=== PATIENT | female | born 1935 | race Caucasian/White ===

== ENCOUNTER 2025-04-25 14:40 | Inpatient (IN) ==
--- NOTE | 2025-04-25 17:34 | History & Physical Report ---
Date of Service April 25, 2025 Assessment & Plan (1) Hematuria: (2) UTI (urinary tract infection): (3) Dementia: (4) History of recent stroke: (5) GERD (gastroesophageal reflux disease): (6) Recurrent UTI: Plan #Hematuria/UTI/Likely RY - pt w/ UTI and persistent hematuria despite being in [facility] for ~ 1 week - continue meropenem, 500 mg, IV, q8h - ordered continuous bladder irrigation (CBI at OSH has not controlled bleeding) - Urology consult placed - CBC, BMP ordered #Recent stroke w/ MRI from OSH suggestive of multiple embolic strokes - discontinued Eliquis; start Heparin (standard) drip - OSH MRI: 4 mm area of restricted diffusion of l. frontal lobe - [facility] recent admission Hx at nurses station - AM Anti-Factor Xa ordered #Abdominal pain - primarily epigastric, pt w/ Hx of GERD - increase pantoprazole, 40 mg, PO, daily (home med is omeprazole, 20 mg, PO, daily) - CMP ordered for AM labs Chronic conditions #Dementia/depression - continue olanzapine, 5 mg, PO, BID - continue Bupropion, 150 mg, PO, XR, AM #GERD - pantoprazole, PO, daily #Hypothyroidism - continue levothyroxine, 25 mcg, PO, daily, BB Code status: DNR/DNI (confirmed w/ daughter/POA) Disposition: Med-Surg VTE Prophylaxis: Heparin drip (existing clots) FENGI: regular diet Admission and Anticipated Discharge Date Admission Date: April 25, 2025 History of Present Illness Chief Complaint: Hematuria, UTI Primary Care Provider: [facility] Patient is a 89 yo F w/ a PMHx of dementia, GERD, recent evidence of CVA on MRI, delirium, recurrent UTI's, presenting today as a transfer from [facility] due to persistent hematuria after being in the hospital for ~ 1 week (per pt) and being treated for a UTI along. Patient is AAO x 1 only (knows her name, own , nothing else). Patient unable to provide a reliable Hx of her symptoms and is suggestible to having pain in whatever body part is asked about. Past Med/Surg History Problem List (Updated 04/25/25 @ 19:42 by Haris Matthews MD) Recurrent UTI GERD (gastroesophageal reflux disease) History of recent stroke Dementia UTI (urinary tract infection) Hematuria Social History Smoking Status: Never smoker Second Hand Exposure: No; Do You Dip or Chew Tobacco: No; Tobacco Cessation Education Requested by Patient: No Hx Alcohol Use: No Hx Substance Use: No Preferred Language: Yakut Communication Ability: Effective Drug Safety Specialist Required: No Beliefs That Will Affect Care: None Current Living Situation: Personal Care Facility Other Information That Helps Us Care for You: No Feels Safe at Home: Yes Safety Concerns: Feels Safe At This Time Assistive Devices: Wheelchair Review of Systems Review of Systems: Unobtainable due to cognitive status Genitourinary: + hematuria Physical Exam Constitutional: WD/WN, vitals as above Respiratory: normal respiratory effort, lungs clear to auscultation Cardiovascular: Rate/Rhythm: regular rate and regular rhythm Heart Sounds: + murmur Vessels: radial pulses present Gastrointestinal (Abdomen): Inspection/Auscultation: abdomen normal to inspe ction and normal bowel sounds Percussion/Palpation: + abdomen tender (RUQ and epigastric tenderness, 5/10) uncertain severity, uncertain if pt understood question Psychiatric: Orientation: alert and oriented to person; + not oriented to place and + not oriented to time Genitourinary: bladder normal to inspection Supervising Physician Co-Signing Physician Notes I personally examined the patient and verified all lea points of history and exam, discussed case, and agree with decision making with Dr Matthews no complaints no pain no notable problems but also quite confused and HPI/ROS (other than extremely proximal value) is of questionable veracity vitals noted nad heent nc at mmm breathing unlabored no accessory muscles good effort skin no rashes no pallor or icterus neuro no focal deficits urine red UTI, hematuria- apparently on CBI for days wtihout clearing. on meropenem for ESBL. sent for urology eval. 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 get records/review/secondary risk reduction as appropriate, but anticoagulation for now dementia (with what sounds to be fairly severe baseline functional impairment) - in d/w transferring hospitalist, pt was at [facility] ([place]) but family felt she requires a higher level of care at this point (SNF) and want to pursue bed at [facility] otherwise as above
[2025-04-25] MEDS ORDERED: ACETAMINOPHEN 500 MG TAB PO PRN (17:44)
[2025-04-25] MEDS ORDERED: ONDANSETRON INJ 2 MG/ML 2 ML VIAL IV PRN (17:44)
--- NOTE | 2025-04-25 18:18 | Billing Data ---
Date of Service April 25, 2025 Coding Level of Care Code 43753 INT INP/OBS CARE
[2025-04-25 19:45] LABS: Hematocrit (blood only) 32.6 % (37.0-47.0); Hemoglobin 10.3 g/dl (12.0-16.0); Mean Corpuscular Hemoglobin 28.1 pg (25.0-34.0); Mean Corpuscular Volume 89.1 fL (80.0-100.0); Platelet Count 300 K/uL (130-400); RDW Standard Deviation 46.2 fL (36.4-46.3); Red Blood Count 3.66 M/uL (4.20-5.40); White Blood Count 10.82 K/ul (4.8-10.8)
[2025-04-25] MEDS: Patient's HEIGHT &/or WEIGHT Needed SCH (19:57)
[2025-04-25 20:04] LABS: Anion Gap 7.0 (3-11); Blood Urea Nitrogen 18.0 mg/dl (6-23); Calcium 8.8 mg/dl (8.6-10.3); Carbon Dioxide 25.0 mmol/L (21-32); Chloride 105.0 mmol/L (98-107); Creatinine Clr Calc Pharmacy 48.0 ml/min; Glucose 103.0 mg/dl (70-99(Fasting)); Potassium 3.2 mmol/L (3.5-5.1); Sodium 137.0 mmol/L (136-145)
[2025-04-25] MEDS: MEROPENEM 500 MG in SYRINGE 0 ML IV SCH (21:44)
[2025-04-25] MEDS: Heparin IV Adult Wt-Based Standard *NO* INITIAL Bolus Protocol IV STA (22:06)
[2025-04-25] MEDS: HEPARIN 25000 UNIT/500 ML D5W 25,000 UNITS/500 ML BAG IV SCH (22:08)
[2025-04-25 22:21] LABS: INR 1.1 (0.9-1.1); Partial Thromboplastin Time 29 Seconds (21-31); Prothrombin Time 11.6 Seconds (9.0-12.0)
[2025-04-26] MEDS: LACTATED RINGER'S 1,000 ML IV SCH (00:20)
[2025-04-26 00:53] LABS: Appearance Urine Clear (Clear); Bacteria Urine Automated None Seen (None Seen); Cast Urine Automated >20 /lpf (0-2); Epithelial Cell Urine Auto 0-2 /hpf (0-2); Glucose Urine UA Negative (Negative); RBC Urine Automated >20 /hpf (0-2); WBC Urine Automated >50 /hpf (0-5)
[2025-04-26] MEDS: LEVOTHYROXINE SODIUM 25 MCG TABLET PO SCH (06:11)
[2025-04-26 06:36] LABS: Hematocrit (blood only) 29.6 % (37.0-47.0); Hemoglobin 9.9 g/dl (12.0-16.0); Mean Corpuscular Hemoglobin 29.6 pg (25.0-34.0); Mean Corpuscular Volume 88.6 fL (80.0-100.0); Platelet Count 285 K/uL (130-400); RDW Standard Deviation 45.5 fL (36.4-46.3); Red Blood Count 3.34 M/uL (4.20-5.40); White Blood Count 9.62 K/ul (4.8-10.8)
--- NOTE | 2025-04-26 06:53 | Hospitalist Progress Note ---
Date of Service April 26, 2025 Assessment & Plan (1) Hematuria: (2) UTI (urinary tract infection): (3) Dementia: (4) History of recent stroke: (5) GERD (gastroesophageal reflux disease): (6) Recurrent UTI: Plan #Hematuria/UTI/Likely RY - pt w/ UTI and persistent hematuria despite being in [facility] for ~ 1 week - continue meropenem, 500 mg, IV, q8h - ordered continuous bladder irrigation (CBI at OSH had not controlled bleeding) and this morning the urine was completely yellow - Urology consult placed, do not plan on any acute intervention as gross hematuria has resolved - Pt can F/U w/ Urology as outpt - CBC, BMP ordered #Recent stroke w/ MRI from OSH suggestive of multiple embolic strokes - discontinued Eliquis; started Heparin (standard) drip - OSH MRI: 4 mm area of restricted diffusion of l. frontal lobe, m - CTA: showed PE's - [facility] recent admission Hx at nurses station - AM Anti-Factor Xa ordered, 0.91 --> 0.58 #Hypokalemia/Malnutrition/Poor oral intake - 40 mg KCl, oral ordered, ONCE; 20 mg KCl, PO, AM daily - TP, 5.3; Alb, 2.8 --> Patient may need Boost supplementation #Abdominal pain - primarily epigastric, pt w/ Hx of GERD - increase pantoprazole, 40 mg, PO, daily (home med is omeprazole, 20 mg, PO, daily) - CMP ordered for AM labs, results grossly WNL besides above Chronic conditions #Dementia/depression - continue olanzapine, 5 mg, PO, BID --> changed to 5 mg, PO, qHS d/t sedation - continue Bupropion, 150 mg, PO, XR, AM #GERD - pantoprazole, PO, daily #Hypothyroidism - continue levothyroxine, 25 mcg, PO, daily, BB Code status: DNR/DNI (confirmed w/ daughter/POA) Disposition: Med-Surg VTE Prophylaxis: Heparin drip (existing clots) FENGI: regular diet Admission and Anticipated Discharge Date Admission Date: April 25, 2025 Supervising Physician Co-Signing Physician Notes I personally examined the patient and verified all lea points of history and exam, discussed case, and agree with decision making with Dr Matthews No new problems. Urine now clear. Vitals noted. Resting comfortably no distress. Breathing unlabored no accessory muscle use good effort. Skin without rashes pallor or icterus. Neuro without focal deficits. UTI, hematuria- apparently on CBI for days wtihout clearing. on meropenem for ESBL. sent for urology eval. undoubtedly anticoagulation (needed for what sounds to be paradoxical emboli) playing a role in unmasking/amplifying bleeding, but does not appear safe to simply stop anticoagulation (except for brief interruption if urology procedure warranted)Urine now clearing. Await u rology evaluation. 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 Appears to have had small embolic appearing strokes on MRI brain, appears to have had small peripheral PEsthis all favors anticoagulation. Heparin for now, once it is clear that the urine is cleared and no interventions are needed, or interventions are completed, then would transition to DOAC dementia (with what sounds to be fairly severe baseline functional impairment) - in d/w transferring hospitalist, pt was at [facility] ([place]) but family felt she requires a higher level of care at this point (SNF) and want to pursue bed at [facility] otherwise as above Subjective Patient more fatigued this morning compared to the day prior, only intermittently cooperative with exam and only with intermittent responses to questions. Patient's breakfast was untouched and patient was sleeping upon entering the room. Review of Systems Review of Systems: All systems reviewed & are unremarkable except as noted in HPI & below Constitutional: + daytime sleepiness Gastrointestinal: + abdominal pain (RUQ and epigastric reg ion) Genitourinary: no hematuria gross hematuria appears to have resolved compared to last night Physical Exam Constitutional: WD/WN, vitals as above + lethargic Respiratory: normal respiratory effort, lungs clear to auscultation Cardiovascular: Rate/Rhythm: regular rate and regular rhythm Heart Sounds: + murmur Vessels: radial pulses present Gastrointestinal (Abdomen): Inspection/Auscultation: abdomen normal to inspection and normal bowel sounds Percussion/Palpation: + abdomen tender (RUQ and epigastric tenderness, 5/10) Psychiatric: Orientation: oriented to person; + not oriented to place and + not oriented to time Genitourinary: bladder normal to inspection Results & Data Results & Data Vital Signs (Past 12 Hours) Vital Signs Temp Pulse Resp BP Pulse Ox O2 Del Method 04/25/25 21:52 36.7 C 81 16 123/84 95 Room Air 04/25/25 21:40 Room Air Resident Activity Tracking Resident Involvement: Resident Care Provided Care Provided: Adult Hospital Medicine
[2025-04-26 07:15] LABS: Alanine Aminotransferase 11.0 U/L (7-52); Albumin Globulin Ratio 1.1 (0.9-2); Albumin Level 2.8 gm/dl (3.4-5.0); Alkaline Phosphatase 61.0 U/L (34-104); Anion Gap 4.0 (3-11); Bilirubin,Total 0.5 mg/dl (0.2-1.0); Blood Urea Nitrogen 14.0 mg/dl (6-23); Calcium 8.4 mg/dl (8.6-10.3); Carbon Dioxide 28.0 mmol/L (21-32); Chloride 107.0 mmol/L (98-107); Creatinine Clr Calc Pharmacy 47.3 ml/min; Globulin 2.5 gm/dl (2.5-4.0); Potassium 3.4 mmol/L (3.5-5.1); Sodium 139.0 mmol/L (136-145); Total Protein 5.3 gm/dl (6.0-8.3)
[2025-04-26 07:58] LABS: ANTI-Xa, UFH(UnfractionatedHep 0.91 IU/ml (0.3-0.7)
--- NOTE | 2025-04-26 09:43 | Urology Consultation ---
Date of Consultation April 26, 2025 Assessment & Plan (1) Hematuria: (2) Recurrent UTI: Plan 89-year-old female transferred from [facility] for persistent hematuria. Urology is consulted for persistent hematuria Patient afebrile and hemodynamically stable Labs reviewedcreatinine 0.71, WBC 9.62, hemoglobin 9.9 Urinalysis showed 3+ protein, trace ketones, 3+ blood, 3+ LE, >50 WBC, >20 RBC, 0-2 epithelial cells and negative for bacteria Urine culture is pending She is currently on meropenem Foster draining clear yellow urine with CBI on slow Will continue to titrate CBI as appropriate Maintain Foster catheter Nursing can manually irrigate catheter if it becomes obstructed Continue antibiotics per culture No acute intervention at this time Will plan for outpatient follow-up with our service for hematuria workup will follow, please contact resources additional questions or concerns History of Present Illness Reason for Consultation: persistent hematuria in context of PEs Attending Physician: Bird Asher DO History of Present Illness This is an 89-year-old female with past medical history of dementia, recent stroke, and recurrent UTIs who was admitted on 04/25/2025 as a transfer from [facility] due to persistent hematuria. Urology is consulted for persistent hematuria in context of PEs. On arrival to [facility], her lab work showed WBC 10.82, hemoglobin 10.3, potassium 3.2, creatinine 0.7. Urinalysis showed 3+ protein, trace ketones, 3+ blood, 3+ LE, >50 WBC, >20 RBC, 0-2 epithelial cells and negative for bacteria. Urine culture is pending. Per admitting records, she was hospitalized for approximately 1 week at [facility] due to persistent hematuria. She was recently diagnosed with a stroke. MRI from outside hospital suggestive of multiple embolic strokes. She has been started on a heparin drip. She is on meropenem for UTI and patient was started on continuous bladder irrigation. Labs today reviewedcreatinine 0.71, WBC 9.62, hemoglobin 9.9 Patient seen and examined at bedside. She appears comfortable in bed. [place] to her name. She is not able to provide meaningful history. Foster patent and draining clear yellow urine. Allergies Allergy/AdvReac Type Severity Reaction Status Date / Time ertapenem Allergy Severe Unknown Verified 04/25/25 19:56 morphine AdvReac Intermediate Vomiting Verified 04/25/25 20:12 Penicillins AdvReac Unknown Unknown Verified 04/25/25 19:56 Patient History Social History Smoking Status: Never smoker Second Hand Exposure: No; Do You Dip or Chew Tobacco: No; Tobacco Cessation Education Requested by Patient: No Hx Alcohol Use: No Hx Substance Use: No Preferred Language: Amharic Communication Ability: Effective Acid Dumper Required: No Beliefs That Will Affect Care: None Current Living Situation: Personal Care Facility Other Information That Helps Us Care for You: No Feels Safe at Home: Yes Safety Concerns: Feels Safe At This Time Assistive Devices: Wheelchair Review of Systems Review of Systems: Unobtainable due to cognitive status Physical Exam Constitutional: no acute distress Respiratory: normal respiratory effort; no respiratory distress and no labored breathing Gastrointestinal (Abdomen): Inspection/Auscultation: abdomen normal to inspection Musculoskeletal: Head/Neck/Chest: normocephalic Neurologic: moves all extremities Psychiatric: Orientation: cooperative Genitourinary: Foster catheter draining clear yellow urine with CBI on slow Results & Data Vital Signs (Past 12 Hours) Vital Signs Temp Pulse Resp BP Pulse Ox O2 Del Method 04/26/25 07:03 36.8 C 70 16 145/85 H 96 Room Air 04/25/25 21:52 36.7 C 81 16 123/84 95 Room Air PG Care Time/CCT Total # of Minutes Spent Total Time Spent with Patient: Total time spent is greater than 50% in coordination of care (as documented) at patient's floor/unit and/or counseling patient: Coding Level of Care Code 36886 INT INP/OBS CARE 2/55MIN Diagnoses Hematuria R31.9 Recurrent UTI N39.0
[2025-04-26] MEDS: POTASSIUM CHLORIDE CRTAB 20 MEQ TABCR PO ONE (10:05)
[2025-04-26 16:06] LABS: ANTI-Xa, UFH(UnfractionatedHep 0.58 IU/ml (0.3-0.7)
--- NOTE | 2025-04-26 16:11 | Billing Data ---
Date of Service April 26, 2025 Coding Level of Care Code 43592 SUB INP/OBS CARE
[2025-04-27 06:35] LABS: Hematocrit (blood only) 29.1 % (37.0-47.0); Hemoglobin 9.3 g/dl (12.0-16.0); Immature Granulocytes # (auto) 0.04 K/uL (0.01-0.20); Immature Granulocytes % (auto) 0.5 %; Mean Corpuscular Hemoglobin 28.1 pg (25.0-34.0); Mean Corpuscular Volume 87.9 fL (80.0-100.0); Platelet Count 276 K/uL (130-400); RDW Standard Deviation 46.4 fL (36.4-46.3); Red Blood Count 3.31 M/uL (4.20-5.40); White Blood Count 8.34 K/ul (4.8-10.8)
[2025-04-27 07:10] LABS: ANTI-Xa, UFH(UnfractionatedHep 0.40 IU/ml (0.3-0.7)
--- NOTE | 2025-04-27 08:56 | Hospitalist Progress Note ---
Date of Service April 27, 2025 Assessment & Plan (1) Hematuria: (2) UTI (urinary tract infection): (3) Dementia: (4) History of recent stroke: (5) GERD (gastroesophageal reflux disease): (6) Recurrent UTI: Plan #Hematuria/UTI/Likely RY - pt w/ UTI and persistent hematuria despite being in [facility] for ~ 1 week - continue meropenem, 500 mg, IV, q8h - ordered continuous bladder irrigation (CBI at OSH had not controlled bleeding) and this morning the urine was completely yellow - Urology consult placed, do not plan on any acute intervention as gross hematuria has resolved - Pt can F/U w/ Urology as outpt - CBC, BMP ordered #Recent stroke w/ MRI from OSH suggestive of multiple embolic strokes - discontinued Eliquis; started Heparin (standard) drip - OSH MRI: 4 mm area of restricted diffusion of l. frontal lobe, m - CTA (OSH): showed PE's - [facility] recent admission Hx at nurses station - AM Anti-Factor Xa ordered, 0.91 --> 0.58 #Hypokalemia/Malnutrition/Poor oral intake - 40 mg KCl, oral ordered, ONCE; 20 mg KCl, PO, AM daily - TP, 5.3; Alb, 2.8 --> Patient may need Boost supplementation #Abdominal pain - primarily epigastric, pt w/ Hx of GERD - increase pantoprazole, 40 mg, PO, daily (home med is omeprazole, 20 mg, PO, daily) - CMP ordered for AM labs, results grossly WNL besides above Chronic conditions #Dementia/depression - continue olanzapine, 5 mg, PO, BID --> changed to 5 mg, PO, qHS d/t sedation - continue Bupropion, 150 mg, PO, XR, AM #GERD - pantoprazole, PO, daily #Hypothyroidism - continue levothyroxine, 25 mcg, PO, daily, BB Code status: DNR/DNI (confirmed w/ daughter/POA) Disposition: Med-Surg VTE Prophylaxis: Heparin drip (existing clots) FENGI: regular diet Admission and Anticipated Discharge Date Admission Date: April 25, 2025 Supervising Physician Co-Signing Physician Notes I personally examined the patient and verified all lea points of history and exam, discussed case, and agree with decision making with Dr Matthews urine more pink, and apparently blood worse when CBI turned down. Vitals noted. Resting comfortably no distress. Breathing unlabored no accessory muscle use good effort. Skin without rashes pallor or icterus. Neuro without focal deficits. UTI, hematuria- apparently on CBI for days wtihout clearing. on meropenem for ESBL. sent for urology eval. 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 Appears to have had small embolic appearing strokes on MRI brain, appears to have had small peripheral PEsthis all favors anticoagulation. Heparin for now, once it is clear that the urine is cleared and no interventions are needed (not yet), or interventions are completed, then would transition to DOAC dementia (with what sounds to be fairly severe baseline functional impairment) - in d/w transferring hospitalist, pt was at [facility] ([place]) but family felt she requires a higher level of care at this point (SNF) and want to pursue bed at [facility]; case management input appreciated otherwise as above Subjective Patient still fatigued this morning again, only intermittently cooperative with exam and only with intermittent responses to questions. Patient sleeping upon entering room this morning and needed repeated effort to rouse her. Review of Systems Constitutional: + daytime sleepiness Gastrointestinal: no abdominal pain (RUQ and epigastric region) Genitourinary: + hematuria gross hematuria has returned compared to day before Physical Exam Constitutional: WD/WN, vitals as above + lethargic Respiratory: normal respiratory effort, lungs clear to auscultation Cardiovascular: Rate/Rhythm: regular rate and regular rhythm Heart Sounds: + murmur Vessels: radial pulses present Gastrointestinal (Abdomen): Inspection/Auscultation: abdomen normal to inspection and normal bowel sounds Psychiatric: Orientation: alert and oriented to person; + not oriented to place and + not oriented to time Genitourinary: bladder normal to inspection Results & Data Results & Data Vital Signs (Past 12 Hours) Vital Signs Temp Pulse Resp BP Pulse Ox O2 Del Method 04/27/25 07:47 36.5 C 71 16 101/68 96 Room Air 04/26/25 22:04 37.1 C 77 16 105/72 93 Room Air
--- NOTE | 2025-04-27 09:00 | Billing Data ---
Date of Service April 27, 2025 Coding Level of Care Code 58719 SUB INP/OBS CARE
[2025-04-27] MEDS: POTASSIUM CHLORIDE CRTAB 20 MEQ TABCR PO SCH (09:17)
--- NOTE | 2025-04-27 10:45 | Urology Progress Note ---
Date of Service April 27, 2025 Assessment & Plan (1) Hematuria: (2) UTI (urinary tract infection): Plan: 89-year-old female transferred from [facility] for persistent hematuria. Follow-up of hematuria Patient afebrile and hemodynamically stable Labs reviewedWBC 8.34, hemoglobin 9.3 Urine culture is pending She is currently on meropenem Foster draining clear yellow urine with CBI clamped Okay to discontinue CBI and plug irrigation port, maintain catheter She remains on heparin Nursing can manually irrigate catheter if it becomes obstructed Continue antibiotics per culture No acute intervention at this time Will plan for outpatient follow-up with our service for hematuria workup will sign off, please contact her service with any additional questions or concerns Admission and Anticipated Discharge Date Admission Date: April 25, 2025 Subjective Patient seen and examined at bedside this morning. She is awake and resting in bed. She reports irritation on her hand after her IV came out. Otherwise denies pain. Foster patent and draining clear yellow urine with CBI clamped. Per nursing, her urine transiently became slightly bloody yesterday evening and CBI was restarted, but was clamped again after becoming clear. Review of Systems Constitutional: as per Subjective / HPI Genitourinary: as per Subjective / HPI Physical Exam Constitutional: no acute distress Respiratory: normal respiratory effort; no respiratory distress and no labored breathing Gastrointestinal (Abdomen): Inspection/Auscultation: abdomen normal to inspection Musculoskeletal: Head/Neck/Chest: normocephalic Neurologic: moves all extremities Psychiatric: Orientation: cooperative Genitourinary: Foster catheter draining clear yellow urine with CBI clamped Results & Data Vital Signs (Past 12 Hours) Vital Signs Temp Pulse Resp BP Pulse Ox O2 Del Method 04/27/25 07:47 36.5 C 71 16 101/68 96 Room Air PG Care Time/CCT Total # of Minutes Spent Total Time Spent with Patient: Total time spent is greater than 50% in coordination of care (as documented) at patient's floor/unit and/or counseling patient: Coding Level of Care Code 58003 SUB INP/OBS CARE 08/14MIN Diagnoses Hematuria R31.9 UTI (urinary tract infection) N39.0
[2025-04-28 04:21] LABS: Anion Gap 3.0 (3-11); Blood Urea Nitrogen 13.0 mg/dl (6-23); Calcium 8.4 mg/dl (8.6-10.3); Carbon Dioxide 28.0 mmol/L (21-32); Chloride 107.0 mmol/L (98-107); Creatinine Clr Calc Pharmacy 50.1 ml/min; Potassium 3.7 mmol/L (3.5-5.1); Sodium 138.0 mmol/L (136-145)
[2025-04-28 04:23] LABS: ANTI-Xa, UFH(UnfractionatedHep 0.53 IU/ml (0.3-0.7)
--- NOTE | 2025-04-28 07:36 | Hospitalist Progress Note ---
Date of Service April 28, 2025 Assessment & Plan (1) Hematuria: (2) UTI (urinary tract infection): (3) Dementia: (4) History of recent stroke: (5) GERD (gastroesophageal reflux disease): (6) Recurrent UTI: Plan #Hematuria/UTI/Likely RY - pt w/ UTI and persistent hematuria despite being in [facility] for ~ 1 week - continue meropenem, 500 mg, IV, q8h - ordered continuous bladder irrigation (CBI at OSH had not controlled bleed ing), next morning urine completely yellow - Urology consult placed, no plan for acute intervention as gross hematuria had temporarily resolved before returning on 04/27 - per Urology recs, bladder irrigation changed to "as needed, manual irrigation" - Pt can F/U w/ Urology as outpt - Ur Cx, no growth after 48 hrs - CBC, BMP ordered #Recent stroke w/ MRI from OSH suggestive of multiple embolic strokes - discontinued Eliquis; started Heparin (standard) drip - OSH MRI: 4 mm area of restricted diffusion of l. frontal lobe, m - CTA (OSH): showed PE's - [facility] recent admission Hx at nurses station - AM Anti-Factor Xa ordered, 0.91 --> 0.53 #Hypokalemia/Malnutrition/Poor oral intake - 40 mg KCl, oral ordered, ONCE; 20 mg KCl, PO, AM daily - K, 3.7 - TP, 5.3; Alb, 2.8 --> Boost supplementation ordered #Abdominal pain #resolved - primarily epigastric, pt w/ Hx of GERD - increase pantoprazole, 40 mg, PO, daily (home med is omeprazole, 20 mg, PO, daily) - CMP ordered for AM labs, results grossly WNL besides above Chronic conditions #Dementia/depression - continue olanzapine, 5 mg, PO, BID --> changed to 5 mg, PO, qHS d/t sedation - continue Bupropion, 150 mg, PO, XR, AM #GERD - pantoprazole, PO, daily #Hypothyroidism - continue levothyroxine, 25 mcg, PO, daily, BB Code status: DNR/DNI (confirmed w/ daughter/POA) Disposition: Med-Surg VTE Prophylaxis: Heparin drip (existing clots) FENGI: regular diet Admission and Anticipated Discharge Date Admission Date: April 25, 2025 Supervising Physician Co-Signing Physician Notes I personally examined the patient and verified all lea points of history and exam, discussed case, and agree with decision making with Dr Matthews urine a little bit more pink with a small amount of blood as sediment in the Foster bag. No meaningful HPI or review of systems. Vitals noted. Resting comfortably no distress. Breathing unlabored no accessory muscle use good effort. Skin without rashes pallor or icterus. Neuro without focal deficits. UTI, hematuria- apparently on CBI for days without clearing. on meropenem for ESBL. sent for urology eval. undoubtedly anticoagulation (needed for what sounds to be paradoxical emboli) playing a role in unmasking/amplifying bleeding, but does not appear safe to simply stop anticoagulation (except for brief interruption if urology procedure warranted)can't seem to successfully turn down CBI - Today CBI is off, urine a little bit more bloody, but not so much as to clearly need interventioncontinue to follow. 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 Appears to have had small embolic appearing strokes on MRI brain, appears to have had small peripheral PEsthis all favors anticoagulation. Continue heparin for now, once it is clear that the urine is cleared and no interventions are needed (not yet), or interventions are completed, then would transition to DOAC dementia (with what sounds to be fairly severe baseline functional impairment) - in d/w transferring hospitalist, pt was at [facility] ([place]) but family felt she requires a higher level of care at this point (SNF) and want to pursue bed at [facility]; case management input appreciated otherwise as above Subjective Patient friendly and alert this morning, but still only AAO x 1. She is cooperative with exam, but commands need to be repeated often for patient to understand and follow; some commands she is unable to follow. Patient sleeping upon entering room this morning and needed repeated effort to rouse her. Review of Systems Constitutional: + daytime sleepiness Gastrointestinal: no abdominal pain (RUQ and epigastric region) Genitourinary: + hematuria gross hematuria has returned compared to day before Physical Exam Constitutional: WD/WN, vitals as above + lethargic Respiratory: normal respiratory effort, lungs clear to auscultation Cardiovascular: Rate/Rhythm: regular rate and regular rhythm Heart Sounds: + murmur Vessels: radial pulses present Gastrointestinal (Abdomen): Inspection/Auscultation: abdomen normal to inspection and normal bowel sounds Percussion/Palpation: + abdomen tender (RUQ and epigastric tenderness, 5/10) Psychiatric: Orientation: alert and oriented to person; + not oriented to place and + not oriented to time Genitourinary: bladder normal to inspection Results & Data Results & Data Vital Signs (Past 12 Hours) Vital Signs Temp Pulse Resp BP BP Pulse Ox O2 Del Method 04/28/25 07:00 36.8 C 69 19 154/87 H 96 Room Air 04/27/25 23:10 36.7 C 80 18 113/74 94 Room Air
--- NOTE | 2025-04-28 15:55 | Billing Data ---
Date of Service April 28, 2025 Coding Level of Care Code 30033 SUB INP/OBS CARE
[2025-04-28] MEDS: MELATONIN 3 MG TAB PO PRN (21:00)
[2025-04-29 04:36] LABS: Hematocrit (blood only) 29.3 % (37.0-47.0); Hemoglobin 9.1 g/dl (12.0-16.0); Immature Granulocytes # (auto) 0.06 K/uL (0.01-0.20); Immature Granulocytes % (auto) 0.7 %; Mean Corpuscular Hemoglobin 27.9 pg (25.0-34.0); Mean Corpuscular Volume 89.9 fL (80.0-100.0); Platelet Count 305 K/uL (130-400); RDW Standard Deviation 47.9 fL (36.4-46.3); Red Blood Count 3.26 M/uL (4.20-5.40); White Blood Count 8.20 K/ul (4.8-10.8)
[2025-04-29 04:53] LABS: Anion Gap 3.0 (3-11); Blood Urea Nitrogen 11.0 mg/dl (6-23); Calcium 8.6 mg/dl (8.6-10.3); Carbon Dioxide 30.0 mmol/L (21-32); Chloride 107.0 mmol/L (98-107); Creatinine Clr Calc Pharmacy 50.1 ml/min; Potassium 3.6 mmol/L (3.5-5.1); Sodium 140.0 mmol/L (136-145)
[2025-04-29 05:01] LABS: ANTI-Xa, UFH(UnfractionatedHep 0.45 IU/ml (0.3-0.7)
--- NOTE | 2025-04-29 07:18 | Hospitalist Progress Note ---
Date of Service April 29, 2025 Assessment & Plan (1) Hematuria: (2) UTI (urinary tract infection): (3) Dementia: (4) History of recent stroke: (5) GERD (gastroesophageal reflux disease): (6) Recurrent UTI: Plan #Hematuria/UTI/Likely RY - pt w/ UTI and persistent hematuria despite being in [facility] for ~ 1 week - Completed meropenem, 500 mg 04/28 - ordered continuous bladder irrigation (CBI at OSH had not controlled bleedin g), next morning urine completely yellow - Urology consult placed, no plan for acute intervention as gross hematuria had temporarily resolved before returning on 04/27 - per Urology recs, bladder irrigation changed to "as needed, manual irrigation" Can order non-con CT ab/pelvis Pt can F/U w/ Urology as outpt - CT ab/pelvis ordered - CBC, BMP ordered #Recent stroke w/ MRI from OSH suggestive of multiple embolic strokes - Continues on Heparin (standard) drip - OSH MRI: 4 mm area of restricted diffusion of l. frontal lobe, m - CTA (OSH): showed PE's - [facility] recent admission Hx at nurses station - AM Anti-Factor Xa ordered, 0.91 --> 0.53 -->0.45 #Hypokalemia/Malnutrition/Poor oral intake - Continue 20 mg KCl, PO, AM daily - K, 3.6 - Boost supplementation ordered #Abdominal pain #resolved - primarily epigastric, pt w/ Hx of GERD - Continue pantoprazole, 40 mg, PO, daily (home med is omeprazole, 20 mg, PO, daily) - CMP ordered for AM labs, results grossly WNL besides above Chronic conditions #Dementia/depression - continue olanzapine, 5 mg, PO, BID --> changed to 5 mg, PO, qHS d/t sedation - continue Bupropion, 150 mg, PO, XR, AM #GERD - pantoprazole, PO, daily #Hypothyroidism - continue levothyroxine, 25 mcg, PO, daily, BB Code status: DNR/DNI (confirmed w/ daughter/POA) Disposition: Med-Surg VTE Prophylaxis: Heparin drip (existing clots) FENGI: regular diet Admission and Anticipated Discharge Date Admission Date: April 25, 2025 Supervising Physician Co-Signing Physician Notes I personally examined the patient and verified all lea points of history and exam, discussed case, and agree with decision making with Dr Mckeon urine bright red. No clots. No meaningful HPI or review of systems. Vitals noted. Resting comfortably no distress. Breathing unlabored no accessory muscle use good effort. Skin without rashes pallor or icterus. Neuro without focal deficits. UTI, hematuria- apparently on CBI for days without clearing. on meropenem for ESBL. sent for urology eval. undoubtedly anticoagulation (needed for what sounds to be paradoxical emboli) playing a role in unmasking/amplifying bleeding, but does not appear safe to simply stop anticoagulation (except for brief interruption if urology procedure warranted) CBI has now been off for about 2 days, urine not clotting, but is definitely more red. Urology did not feel that interventions were needed even today (resident physician reach out to them to discuss what we are seeing) and CT scan was recommended. Done. Currently pending SNF. At this point, given that procedures do not appear to be warranted per urology, we will need to keep Bey in given that I do not believe she could voice if she had clots obstructing bladder drainage, and it would obviously be easier to see with Bey output; and then once the hematuria clears, could DC Bey, and will have to set up close outpatient urology follow- up. 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 Appears to have had small embolic appearing strokes on MRI brain, appears to have had small peripheral PEsthis all favors anticoagulation. Continue heparin for now, once it is clear that the urine is cleared and no interventions are needed (not yet), or interventions are completed, then would transition to DOAC dementia (with what sounds to be fairly severe baseline functional impairment) - in d/w transferring hospitalist, pt was at [facility] ([place]) but family felt she requires a higher level of care at this point (SNF) and want to pursue bed at [facility]; case management input appreciated and set for [facility] tomorrow otherwise as above Subjective No acute events overnight. This morning, pt is sitting in wheelchair eating breakfast. She reports no new complaints. Pt denies chest pain, SOB, abdominal pain, N/V/D, new arthralgias/myalgias Review of Systems Review of Systems: As per HPI Physical Exam Physical Exam: Gen: NAD, pleasant and cooperative HENT: Normocephalic, atraumatic. Trachea midline, no thyromegaly Cardio: RRR, no murmurs or clicks. Resp: CTAB, Equal bilateral chest rise, no increased work of breathing GI: Non distended, soft, non tender, normoactive bowel sounds : Bey in place, fruit punch colored urine noted in bey bag MSK: Moving all 4 extremities independently Skin: Dry, of normal skin tone Neuro: A& O to self, no focal deficits Results & Data Results & Data Vital Signs (Past 12 Hours) Vital Signs Temp Pulse Resp BP Pulse Ox O2 Del Method 04/28/25 23:21 36.7 C 77 17 115/72 93 Room Air Resident Activity Tracking Resident Involvement: Resident Care Provided Care Provided: Adult Hospital Medicine
[2025-04-29 14:26] VITALS: O2SAT 96
--- NOTE | 2025-04-29 15:41 | CT Scan Report ---
ABDOMEN AND PELVIS CT WITHOUT CONTRAST CT DOSE: 1182.19 mGy.cm HISTORY: worsening hematuria TECHNIQUE: Multiaxial CT images of the abdomen and pelvis were performed without contrast. A dose lo wering technique was utilized adhering to the principles of ALARA. COMPARISON STUDY: 04/21/2025 FINDINGS: ABDOMEN: Liver, spleen, and adrenal glands have an unremarkable noncontrast appearance. There is a st able exophytic oval cyst measuring 2 cm greatest dimension anterior aspect of the proximal body of th e pancreas. There is no hydronephrosis on the left. There is stable mild hydronephrosis on the right. No renal or ureteral calculi seen. Pelvis: There is severe distention of the rectum with stool. Otherwise there is moderate retained sto ol. No other bowel inflammation or obstruction seen. Foster catheter is present and the urinary bladde r is decompressed. Stable wall thickening of the urinary bladder. No free fluid or free air. No gross ly enlarged adenopathy. Osseous structures: There is severe diffuse lumbar degenerative disc disease. Right hip prosthesis is present. No acute osseous findings. IMPRESSION: 1. Rectum is severely distended with stool. This is likely causing mass effect on the distal right ur eter, possibly contributing to the mild right hydronephrosis. 2. Stable wall thickening at the urinary bladder could represent cystitis. 3. No other acute findings seen. Otherwise as described. ACT 112: Negative or not required by law. The above report was generated using voice recognition software. It may contain grammatical, syntax o r spelling errors. Electronically signed by: Kody Kidd M.D. 04/29/2025 3:39 PM
--- NOTE | 2025-04-29 16:48 | Billing Data ---
Date of Service April 29, 2025 Coding Level of Care Code 10003 SUB INP/OBS CARE MIN
[2025-04-29 23:04] VITALS: RESP 16
[2025-04-30 06:17] LABS: ANTI-Xa, UFH(UnfractionatedHep 0.42 IU/ml (0.3-0.7)
[2025-04-30 07:34] VITALS: BP 118/77; PULSE 76; TEMP 98.8
--- NOTE | 2025-04-30 07:38 | Discharge Summary ---
Date of Service April 30, 2025 Admission HPI Per Admitting Provider Patient is a 89 yo F w/ a PMHx of dementia, GERD, recent evidence of CVA on MRI, delirium, recurrent UTI's, presenting today as a transfer from [facility] due to persistent hematuria after being in the hospital for ~ 1 week (per pt) and being treated for a UTI along. Patient is AAO x 1 only (knows her name, own , nothing else). Patient unable to provide a reliable Hx of her symptoms and is suggestible to having pain in whatever body part is asked about. Admission Exam Per Admitting Provider Constitutional: WD/WN, vitals as above Respiratory: normal respiratory effort, lungs clear to auscultation Cardiovascular: Rate/Rhythm: regular rate and regular rhythm Heart Sounds: + murmur Vessels: radial pulses present Gastrointestinal (Abdomen): Inspection/Auscultation: abdomen normal to inspection and normal bowel sounds Percussion/Palpation: + abdomen tender (RUQ and epigastric tenderness, 5/10) uncertain severity, uncertain if pt understood question Psychiatric: Orientation: alert and oriented to person; + not oriented to place and + not oriented to time Genitourinary: bladder normal to inspection Principal Diagnosis Hematuria Embolic Stroke with PE( paradoxical stroke) Discharge Exam Gen: NAD, pleasant and cooperative HENT: Normocephalic, atraumatic. Trachea midline, no thyromegaly Cardio: RRR, no murmurs or clicks. Resp: CTAB, Equal bilateral chest rise, no increased work of breathing GI: Non distended, soft, non tender, normoactive bowel sounds : Bey in place, fruit punch colored urine noted in bey bag MSK: Moving all 4 extremities independently Skin: Dry, of normal skin tone Neuro: A& O to self, no focal deficits Constitutional WD/WN, vitals as above + lethargic Respiratory normal respiratory effort, lungs clear to auscultation Cardiovascular Rate/Rhythm: regular rate and regular rhythm Heart Sounds: + murmur Vessels: radial pulses present Gastrointestinal (Abdomen) Inspection/Auscultation: abdomen normal to inspection and normal bowel sounds Percussion/Palpation: + abdomen tender (RUQ and epigastric tenderness, 5/10) Psychiatric Orientation: alert and oriented to person; + not oriented to place and + not oriented to time Genitourinary bladder normal to inspection Discharge Data Allergies Allergy/AdvReac Type Severity Reaction Status Date / Time ertapenem Allergy Severe Unknown Verified 04/25/25 19:56 morphine AdvReac Intermediate Vomiting Verified 04/25/25 20:12 Penicillins AdvReac Unknown Unknown Verified 04/25/25 19:56 Consultations 04/25/25 18:05 Consult Urology Routine Ordered Studies 04/29/25 13:47 CT Abd and Pelvis [CT abd pelvis wo con] Routine Hospital Course (1) Hematuria: (2) UTI (urinary tract infection): (3) Dementia: (4) History of recent stroke: (5) GERD (gastroesophageal reflux disease): (6) Recurrent UTI: Plan #Hematuria/UTI/Likely RY - pt w/ UTI and persistent hematuria despite being in [facility] for ~ 1 week - Resolving, under bey's catheter now - per Urology recs, Bladder irrigation "as needed", manual irrigation Pt can F/U w/ Urology as outpt #Recent stroke w/ MRI from OSH suggestive of multiple embolic strokes - OSH MRI: 4 mm area of restricted diffusion of l. frontal lobe, m - CTA (OSH): showed PE's - Treated with heparin drip at hospital-- changed to Eliquis 5 mg BID on DC. Other Chronic conditions #Dementia/depression - continue olanzapine, 5 mg, PO, BID --> changed to 5 mg, PO, qHS d/t sedation - continue Bupropion, 150 mg, PO, XR, AM #GERD - pantoprazole, PO, daily #Hypothyroidism - continue levothyroxine, 25 mcg, PO, daily, BB Total Time Total Time Spent Total Time Spent (In Minutes): <30 Discharge Plan Discharge Items Patient Disposition: Transfer Custodial Fac Reason For Visit: HEMATURIA,ESBL IN URINE Discharge Diagnosis: Hematuria Activity: Resume your previous activity Non-emergency contact: Primary Care Provider Call non-emergency contact if: your symptoms worsen Follow-up/Referrals: [facility] [Primary Care Provider] - Diet: Regular Addtl Attending Provider Instructions: You were admitted to the hospital for blood in urine and multiple embolic stroke in brain. Hematuria is clearing up compared to how you came in. We will continue catheter on discharge and urology team, who do no recommend any further work up at hospital now, will follow you in their office. Blood thinners have been started for the brain stroke, it looks like blood clots moved from your lungs to the brain-- we recommend to continue blood thinners. Communication has been initiated with the provider at [facility] by bria tidwellist here at [facility], hence they are aware of plan for you to follow. A discharge summary will be sent to your primary care physician to ensure continuity of care. Please bring this discharge summary with you to your next office appointment so that your provider can review it at that time. Medications: Your medication list has been reviewed and reconciled upon discharge to ensure accuracy and continuity of care. An updated list of all your medications is included with your hospital discharge paperwork. Please review this list closely and make note of any changes to your medications. 1. Elliquis 5 mg BID to continue Follow up appointments: - Follow up with Urology - Make a follow up appointment with your PCP within the next week. It is very important that you follow up with them shortly after discharge from the hospital. - Keep all of your follow up appointments as already scheduled. If you cannot make an appointment, notify your provider. CONTACT YOUR PRIMARY CARE PROVIDER if you experience any of the following: - Difficulty following your treatment plan - Difficulty taking any of your medications CALL 911 OR GO TO THE EMERGENCY DEPARTMENT if you experience any of the following: - Worsening bleeding in urine, lots of clots with fever, unresponsiveness - Sudden, severe abdominal pain or nausea/vomiting - Severe chest pain or chest pain that radiates to your jaw or arm - Sudden, severe shortness of breath or difficulty breathing Pending Studies at Discharge: No Stand-Alone Forms: My [facility] Skilled Items Patient informed of condition?: Yes DNR: Yes Discharge Level of Care: Skilled Communicable Disease: No Discharge Prognosis: Stable Lines: None Urinary Catheter: Yes Medications and DC Order Prescriptions: New olanzapine 5 mg Tablet 5 mg PO HS 30 Days Qty: 30 0RF melatonin 3 mg Tablet 3 mg PO HS PRN (Reason: sleep) Qty: 30 0RF acetaminophen [Tylenol Extra Strength] 500 mg Tablet 1,000 mg PO Q8H PRN (Reason: fever or pain) 30 Days Qty: 30 0RF levothyroxine [Synthroid] 25 mcg Tablet 25 mcg PO DAILYBB 30 Days Qty: 30 0RF potassium chloride 20 mEq Tablet,Er Particles/Crystals 20 meq PO QAM 30 Days Qty: 30 0RF pantoprazole 40 mg Tablet,Delayed Release (Dr/Ec) 40 mg PO QAM 30 Days Qty: 30 0RF bisacodyl [Gentle Laxative (bisacodyl)] 5 mg Tablet,Delayed Release (Dr/Ec) 5 mg PO DAILY PRN (Reason: constipation) 30 Days Qty: 30 0RF bupropion HCl 150 mg Tablet Extended Release 24 Hr 150 mg PO QAM 30 Days Qty: 30 0RF apixaban 5 mg tablet 5 mg PO BID 30 Days Qty: 60 0RF bupropion HCl 150 mg tablet extended release 24 hr 150 mg PO DAILY 30 Days Qty: 30 0RF olanzapine 5 mg tablet 5 mg PO HS 30 Days Qty: 30 0RF levothyroxine 25 mcg capsule 25 mcg PO DAILY 30 Days Qty: 30 0RF polyethylene glycol 3350 [Miralax] 17 gram/dose powder 17 g PO BID Qty: 119 0RF Discharge Orders: Discharge Order (Routine); Ordered 04/30/25 Ordered By: Alana Dodd Admission Data Admit Date/Time: 04/25/25 17:01 Attending Provider: Bird Asher Admit Provider: Bird Asher [facility] Other Providers: Haris Bradford; Francine Keating; Jamel Brar; Ludy Smith; Faye Collins; Chavez Cheatham; Luna Macias; Ayaan Florian; Ward Villegas; Devon Banks; Joesph Galvan; Keenan Lopez [facility] Other Interventions: Discharge Summary Assessment (RN) Last Done: 04/30/25 08:24 Supervising Physician Co-Signing Physician Notes I personally examined the patient and verified all lea points of history and exam, discussed case, and agree with decision making with Dr Dodd urine bright red. but again no clots. urology input greatly appreciated. No meaningful HPI or review of systems. Vitals noted. Resting comfortably no distress. Breathing unlabored no accessory muscle use good effort. Skin without rashes pallor or icterus. Neuro without focal deficits. UTI, hematuria- apparently on CBI for days without clearing. on meropenem for ESBL. sent for urology eval. undoubtedly anticoagulation (needed for what sounds to be paradoxical emboli) playing a role in unmasking/amplifying bleeding, but does not appear safe to simply stop anticoagulation (except for brief interruption if urology procedure warranted) Greatly appreciate urology follow-up todaycontinue Bey drainage. Since no clotting, safe for SNF, continue Bey. Outpatient urology follow-up. 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 Appears to have had small embolic appearing strokes on MRI brain, appears to have had small peripheral PEsthis all favors anticoagulation. Hematuria persists, but has not had any clots of meaningful significance since she has been here. Eliquis. dementia (with what sounds to be fairly severe baseline functional impairment) - in d/w transferring hospitalist, pt was at [facility] ([place]) but family felt she requires a higher level of care at this point (SNF) and want to pursue bed at [facility]; case management input appreciated and set for [facility] Today constipationMiraLAX otherwise as above
[2025-04-30] MEDS: POLYETHYLENE (MIRALAX) 17 GM PACK PO PRN (07:43)
[2025-04-30] MEDS: APIXABAN 5 MG TABLET PO SCH (07:47)
--- NOTE | 2025-04-30 08:39 | Urology Progress Note ---
Date of Service April 30, 2025 Assessment & Plan (1) Hematuria: Plan: hematuria appears to be clearing up, no clots on ct and stable for dc from hospital with outpatient follow up from [facility] standpoint. - would continue with anticoagulation despite hematuria in setting suspected stroke - can follow with [facility] as outpatient for discussion hematuria w/u Admission and Anticipated Discharge Date Admission Date: April 25, [address] reviewed no clot burden is however highly constipated with resultant mass effect on bladder, nonetheless catheter draining Physical Exam Physical Exam: Gen: NAD : catheter in place draining light pink urine Results & Data Vital Signs (Past 12 Hours) Vital Signs Temp Pulse Resp BP BP Pulse Ox O2 Del Method 04/30/25 08:01 Room Air 04/30/25 07:33 37.1 C 76 16 118/77 96 Room Air 04/29/25 23:03 36.6 C 81 16 111/64 96 Room Air PG Care Time/CCT Total # of Minutes Spent Total Time Spent with Patient: Total time spent is greater than 50% in coordination of care (as documented) at patient's floor/unit and/or counseling patient: Coding Level of Care Code 76345 SUB INP/OBS CARE 08/14MIN Diagnoses Hematuria R31.9
--- NOTE | 2025-04-30 17:53 | Billing Data ---
Date of Service April 30, 2025 Coding Level of Care Code 31667 IN/OBS DISCH 30 MIN/LESS
== END 2025-04-30 09:33 | DRG 690 ==
LOC: 3E 17:01

== ENCOUNTER 2025-07-07 16:59 | Inpatient (IN) ==
[2025-07-07 18:27] LABS: Hematocrit (blood only) 37.4 % (37.0-47.0); Hemoglobin 12.1 g/dL (12.0-16.0); Immature Granulocytes # (auto) 0.03 K/uL (0.01-0.20); Immature Granulocytes % (auto) 0.3 %; Mean Corpuscular Hemoglobin 29.2 pg (25.0-34.0); Mean Corpuscular Volume 90.3 fL (80.0-100.0); Platelet Count 198 K/uL (130-400); RDW Standard Deviation 46.9 fL (36.4-46.3); Red Blood Count 4.14 M/uL (4.20-5.40); White Blood Count 9.13 K/ul (4.8-10.8)
[2025-07-07 18:43] LABS: Alanine Aminotransferase 8.0 U/L (7-52); Albumin Globulin Ratio 1.2 (0.9-2); Albumin Level 3.2 gm/dl (3.4-5.0); Alkaline Phosphatase 88.0 U/L (34-104); Anion Gap 7.0 (3-11); Bilirubin,Total 0.4 mg/dl (0.2-1.0); Blood Urea Nitrogen 45.0 mg/dl (6-23); Calcium 8.9 mg/dl (8.6-10.3); Carbon Dioxide 22.0 mmol/L (21-32); Chloride 112.0 mmol/L (98-107); Creatinine Clr Calc Pharmacy 12.5 ml/min; Globulin 2.7 gm/dl (2.5-4.0); Glucose 108.0 mg/dl (70-99(Fasting)); Potassium 4.1 mmol/L (3.5-5.1); Sodium 141.0 mmol/L (136-145); Total Protein 5.9 gm/dl (6.0-8.3)
[2025-07-07 19:08] LABS: Appearance Urine Clear (Clear); Bacteria Urine Automated 2+ (None Seen); Cast Urine Automated 0-2 /lpf (0-2); Epithelial Cell Urine Auto 0-2 /hpf (0-2); Glucose Urine UA Negative (Negative); RBC Urine Automated 0-2 /hpf (0-2); WBC Urine Automated 0-5 /hpf (0-5)
--- NOTE | 2025-07-07 20:09 | Emergency Department Note ---
<Statement entered by Lyla Davenport, DO - 07/08/25 00:07> 89-year-old female presents emergency room with complaints of outpatient labs showing worsening of renal function. Patient found to have elevated creatinine in the emergency room. Having some back pain, but otherwise no real complaints. Imaging within normal limits Spoke with patient about results and plans for admission with IV fluid. She is agreeable. [id number] completed. I saw this patient in conjunction with the LEE. Patient was seen and examined by myself. Agree with plan and treatment. Impression & Plan RY (acute kidney injury) ED Provider Note CHIEF COMPLAINT: Worsening kidney function HISTORY OF PRESENTING ILLNESS: Patient is an 89-year-old female presents the emergency department today for complaints of worsening kidney function. Patient is a resident at [facility] and it was noted to have an elevated kidney function a few days ago. They had given her some IV fluids without any improvement and only worsening renal function. Has been eating and drinking normally. Is upset with being at [facility] and needing assistance with care. Patient denies burning, urgency, frequency with urination. Denies flank pain. She denies any fevers or chills, flank pain. Patient denies chest pain, sob, breathing difficulties, abdominal pain, headache, fevers/chills, hematuria, hematochezia, melena. REVIEW OF SYSTEMS: See HPI for pertinent positives and pertinent negatives. ALLERGIES: See below MEDICATIONS: See below PAST MEDICAL HISTORY: See below PHYSICAL EXAM: VITALS: Vitals are noted on the nurse's note and reviewed by myself. GENERAL: Non toxic, in no acute distress, non-diaphoretic. SKIN: Capillary refill <2 sec. EYES: PERRLA. EOMI. Conjunctivae without injection, sclerae without icterus. NOSE: Patent without discharge. MOUTH: Mucous membranes moist. Uvula midline. Airway patent. NECK: Supple without nuchal rigidity. HEART: Regular rate and rhythm without murmurs gallops or rubs. LUNGS: Clear to auscultation bilaterally without wheezes, rales or rhonchi. No retractions or accessory muscle use. ABDOMEN: Positive bowel sounds x 4. Normal tympanic percussion. Soft, nontender to palpation. MUSCULOSKELETAL: Patient does need assistance with standing and moving around. NEURO: Patient was alert and oriented. No focal neurological deficits. DIFFERENTIAL DIAGNOSIS: Calculi, obstructing calculi, acute renal failure, chronic renal failure, ACS, among others. ED COURSE AND MEDICAL DECISION MAKING: HISTORY FROM INDEPENDENT HISTORIAN: History was provided by the patient and her daughter who is at bedside and secondary historian. MONITOR: Continuous environmental monitoring specialist: Order was placed for continuous environmental monitoring specialist. Patient was placed on the environmental monitoring specialist and continuous pulse ox. Patient was noted to be in normal sinus rhythm at an initial rate of 72 bpm per my interpretation. INTERPRETATION OF LABS: I interpreted the labs with full lab results as below in the lab section of this note. Laboratory results pertinent to the emergent complaint are discussed in the MDM section below. The patient was advised to follow up with their PCP and/or specialist(s) for further outpatient monitoring and management of any abnormal results. INTERPRETATION OF IMAGING: Imaging studies were interpreted by myself and read by radiology as per the imaging section of this note. The patient was advised to follow up with their PCP and/or specialist(s) for further outpatient management of any non-emergent abnormal findings. CHRONIC MEDICAL/SOCIAL CONDITIONS AFFECTING CARE: No social concerns were identified as barriers to patients care. EXTERNAL RECORDS REVIEWED: Patient's records from [facility] and her medication list. ESCALATION OF CARE CONSIDERED: I considered admission on this patient due to worsening renal function. CONSULTATIONS: I had a meaningful discussion about this patient with Dr. Davenport who agrees with my assessment and the treatment plan. SUMMARY: I examined the patient for complaints of worsening renal function. A physical exam and history were performed. Nursing notes, EMR, and medication list were personally reviewed. History and exam and reviewed the patient's lab work from [facility]. Concerns for worsening renal function. CBC showed no leukocytosis, anemia, thrombocytopenia. CMP without emergent findings or electrolyte abnormalities. Creatinine was noted be 2.57 with a BUN of 45. Urinalysis was positive for leukocytes and bacteria. Will hold on antibiotics until culture. Urine culture was ordered. CT abd and pelvis showed moderate distention of the distal colon with liquid stool seen distally. There was soft tissue thickening about the rectum and the anus which is unchanged from prior exam. Circumferential wall thickening of the urinary bladder which is distended. Mild bibasilar atelectasis coronary artery calcifications and elevation of the right Hemidiaphragm. I feel the patient will benefit from admission since renal function is not improving. Patient given 1L NSS. I did consult with Dr. Mallory Interiano for admission and the patient was accepted. DIAGNOSIS: RY TREATMENT PLAN/DISCHARGE INSTRUCTIONS: Admit to hospitalist services. The chart was completed utilizing [employer] Speech voice recognition software.Grammatical errors, random word insertions, pronoun errors, and incomplete sentences are an occasional consequence of this system due to software limitations, ambient noise, and hardware issues.Any formal questions or concerns about the content, text, or information contained within the body of this dictation should be directly addressed to the physician for clarification. Past Med/Surg History Problem List (Updated 07/07/25 @ 22:06 by PAULINA Wells) History of pulmonary embolus (PE) History of embolic stroke RY (acute kidney injury) (Acute) Recurrent UTI GERD (gastroesophageal reflux disease) Dementia Hematuria Medical History (Updated 07/07/25 @ 22:06 by PAULINA Wells) History of recent stroke Social History Smoking Status: Never smoker Second Hand Exposure: No; Do You Dip or Chew Tobacco: No; Hx Alcohol Use: No Hx Substance Use: No Preferred Language: Azeri Communication Ability: Effective District Traffic Chief Required: No Beliefs That Will Affect Care: None Current Living Situation: Personal Care Facility Feels Safe at Home: Yes Assistive Devices: Glasses and Wheelchair Allergies Allergies Allergy/AdvReac Type Severity Reaction Status Date / Time ertapenem Allergy Severe SEE COMMENT Verified 07/07/25 19:44 Penicillins Allergy Unknown HAPPENED A Verified 07/07/25 19:44 LONG TIME AGO morphine AdvReac Intermediate Vomiting Verified 07/07/25 19:44 Home Meds Home Medications Medication Instructions Recorded Confirmed acetaminophen 325 mg tablet 650 mg PO Q4H PRN PAIN/FEVER =>100F 07/07/25 07/07/25 (Tylenol) apixaban 5 mg tablet (Eliquis) 5 mg PO BID 07/07/25 07/07/25 bupropion HCl 150 mg 24 hr tablet, 150 mg PO QAM 07/07/25 07/07/25 extended release (Wellbutrin XL) cranberry extract 250 mg capsule 250 mg PO DAILY 07/07/25 07/07/25 estradiol 0.01% (0.1 mg/gram) 0.5 g vaginal HS 07/07/25 07/07/25 vaginal cream (Estrace) levothyroxine 25 mcg tablet 25 mcg PO DAILYBB 07/07/25 07/07/25 olanzapine 5 mg tablet 5 mg PO HS 07/07/25 07/07/25 ondansetron HCl 4 mg tablet 4 mg PO Q6H PRN NAUSEA/VOMITING 07/07/25 07/07/25 pantoprazole 40 mg tablet,delayed 40 mg PO DAILYBB 07/07/25 07/07/25 release (Protonix) polyethylene glycol 3350 17 17 g PO DAILY 07/07/25 07/07/25 gram/dose oral powder (Miralax) potassium chloride 20 mEq 20 meq PO DAILY 07/07/25 07/07/25 tablet,extended release Results & Data (ED) Vital Signs Vital Signs - 24 hr 07/07/25 17:08 07/07/25 17:55 07/07/25 18:17 Temperature 36.5 C Temperature Source Temporal Artery Scan Pulse Rate 84 Pulse Rate [Apical] 80 76 Respiratory Rate 18 20 20 Respiratory Effort / Characteristics Non-Labored Non-Labored Respiratory Depth Normal Normal Respiratory Pattern Blood Pressure 108/69 Blood Pressure [Right Arm] 115/81 104/75 Blood Pressure Mean 82 Blood Pressure Mean [Right Arm] 92 84 Pulse Oximetry 96 95 95 Oxygen Delivery Method Room Air Room Air Sepsis Recent Fever Within 48 Hours No Sepsis New/Unexplained Change in Mental Status No Sepsis Action Taken by Nursing No Action Required 07/07/25 18:50 07/07/25 20:32 07/07/25 21:46 Temperature Temperature Source Pulse Rate Pulse Rate [Apical] 72 79 78 Respiratory Rate 20 16 18 Respiratory Effort / Characteristics Non-Labored Non-Labored Spontaneous Respiratory Depth Normal Normal Respiratory Pattern Regular Blood Pressure Blood Pressure [Right Arm] 130/81 159/96 H Blood Pressure Mean Blood Pressure Mean [Right Arm] 97 117 Pulse Oximetry 95 95 94 Oxygen Delivery Method Room Air Room Air Room Air Sepsis Recent Fever Within 48 Hours Sepsis New/Unexplained Change in Mental Status Sepsis Action Taken by Nursing Laboratory Data 07/07/25 18:14 07/07/25 18:14 Lab Results 07/07/25 07/07/25 Range/Units 18:14 18:47 WBC 9.13 (4.8-10.8) K/ul RBC 4.14 L (4.20-5.40) M/uL Hgb 12.1 (12.0-16.0) g/dL Hct 37.4 (37.0-47.0) % MCV 90.3 (80.0-100.0) fL MCH 29.2 (25.0-34.0) pg MCHC 32.4 (32.0-36.0) g/dL RDW Std Deviation 46.9 H (36.4-46.3) fL RDW Coeff of Alvaro 14.3 (11.5-14.5) % Plt Count 198 (130-400) K/uL MPV 11.7 (9.4-12.4) fL Immature Gran % (Auto) 0.3 % Neut % (Auto) 66.7 % Lymph % (Auto) 18.6 % [place] % (Auto) 6.5 % Eos % (Auto) 7.8 % Baso % (Auto) 0.1 % Neut # (Auto) 6.09 (1.40-6.50) K/uL Lymph # (Auto) 1.70 (1.20-3.40) K/uL [place] # (Auto) 0.59 (0.11-0.59) K/uL Eos # (Auto) 0.71 H (0.00-0.50) K/uL Baso # (Auto) 0.01 (0.00-0.20) K/uL Immature Gran # (Auto) 0.03 (0.01-0.20) K/uL Sodium 141 (136-145) mmol/L Potassium 4.1 (3.5-5.1) mmol/L Chloride 112 H (98-107) mmol/L Carbon Dioxide 22 (21-32) mmol/L Anion Gap 7 (3-11) BUN 45 H (6-23) mg/dl Creatinine 2.57 H (0.6-1.2) mg/dl Est Cr Clr Drug Dosing 12.5 ml/min eGFR 17.46 BUN/Creatinine Ratio 17.5 (10-20) Glucose 108 H (70-99(Fasting)) mg/dl Calcium 8.9 (8.6-10.3) mg/dl Magnesium 1.8 (1.7-2.4) mg/dl Total Bilirubin 0.4 (0.2-1.0) mg/dl AST 12 L (13-39) U/L ALT 8 (7-52) U/L Alkaline Phosphatase 88 (34-104) U/L Total Protein 5.9 L (6.0-8.3) gm/dl Albumin 3.2 L (3.4-5.0) gm/dl Globulin 2.7 (2.5-4.0) gm/dl Albumin/Globulin Ratio 1.2 (0.9-2) Urine Color Yellow Urine Appearance Clear (Clear) Urine pH 5.0 (4.5-7.5) Ur Specific [place] 1.011 (1.000-1.030) Urine Protein Trace H (Negative) Urine Glucose (UA) Negative (Negative) Urine Ketones Negative (Negative) Urine Blood Negative (Negative) Urine Nitrite Negative (Negative) Urine Bilirubin Negative (Negative) Urine Urobilinogen Negative (Negative) Ur Leukocyte Esterase 1+ H (Negative) Urine WBC (Auto) 0-5 (0-5) /hpf Urine RBC (Auto) 0-2 (0-2) /hpf U Hyaline Cast (Auto) 0-2 (0-2) /lpf U Epithel Cells (Auto) 0-2 (0-2) /hpf Urine Bacteria (Auto) 2+ H (None Seen) Urine Comment Administered Medications Sodium Chloride (Nss) 1,000 mls @ 250 mls/hr IV .Q4H ONE Stop: 07/08/25 00:02 Last Admin: 07/07/25 20:23 Dose: 250 mls/hr Documented By: abl Discontinued Medications Ceftriaxone Sodium (Rocephin) 1,000 mg in 50 mls @ 100 mls/hr IV NOW STA Stop: 07/07/25 21:42 Last Admin: 07/07/25 21:24 Dose: 100 mls/hr Documented By: abl Imaging Data Radiologist's Impression: Abdomen/Pelvis CT 07/07/25 17:56 CT of the abdomen pelvis without contrast Technique: Noncontrast axial images of the abdomen and pelvis. Coronal and sagittal reformatted images made available for review Comparison made with prior exam dated 04/29/2025 Findings: Limited noncontrast CT evaluation of solid abdominal organs demonstrates no gross abnormality. No hydroureteronephrosis. Urinary bladder is distended and somewhat thick-walled. No renal, ureteral, or bladder calculi identified on this exam. Evaluation in gastrointestinal tract is limited secondary to lack of IV and oral contrast. Within the limitations exam there is no free air or intestinal obstruction. There is moderate distention of the distal colon with a moderate amount of liquid stool seen distally. There is soft tissue thickening around the rectum and anus which is unchanged from prior exam. Postoperative changes right hip arthroplasty. No acute osseous pathology. Impression: Limited exam Moderate distention of the distal colon with air and is liquid stool seen distally. Soft tissue thickening about the rectum and anus which is unchanged from prior exam Circumferential wall thickening of the urinary bladder which is distended. Findings may represent cystitis in appropriate clinical setting. Mild bibasilar atelectasis. Coronary artery calcifications. Elevation of the right hemidiaphragm. Electronically signed by Bird Barrera 07-07-2025 8:36 PM Discharge Plan Visit Data Chief Complaint: Flank Pain Stated Complaint: KIDNEY CONCERNS ED Provider: Lyla Davenport ED Midlevel Provider: Rosmery Burden Discharge Problem: RY (acute kidney injury) Patient Disposition: Admitted As Inpatient Condition: Good Discharge Instructions Interventions: ED Discharge Assessment Last Done: 07/07/25 21:47 Forms Stand Alone Forms: [facility] My[employer] Prescriptions Prescriptions: No Action acetaminophen [Tylenol] 325 mg Tablet 650 mg PO Q4H PRN (Reason: PAIN/FEVER =>100F) ondansetron HCl [Zofran] 4 mg Tablet 4 mg PO Q6H PRN (Reason: NAUSEA/VOMITING) Rx Instructions: STARTED 07/04/25, ENDS 07/09/25 olanzapine 5 mg Tablet 5 mg PO HS levothyroxine 25 mcg Tablet 25 mcg PO DAILYBB cranberry extract 250 mg Capsule 250 mg PO DAILY Rx Instructions: administer with a meal pantoprazole [Protonix] 40 mg Tablet,Delayed Release (Dr/Ec) 40 mg PO DAILYBB bupropion HCl [Wellbutrin XL] 150 mg Tablet Extended Release 24 Hr 150 mg PO QAM Eliquis 5 mg Tablet 5 mg PO BID potassium chloride 20 mEq Tablet Extended Release 20 meq PO DAILY polyethylene glycol 3350 [Miralax] 17 gram/dose powder 17 g PO DAILY estradiol [Estrace] 0.01 % (0.1 mg/gram) cream 0.5 g vaginal HS Rx Instructions: use nightly Referrals Referrals: eKenan Lopez Estacada [Primary Care Provider] -
[2025-07-07] MEDS: SODIUM CHLORIDE 0.9% 1,000 ML IV ONE (20:23)
--- NOTE | 2025-07-07 20:36 | CT Scan Report ---
CT of the abdomen pelvis without contrast Technique: Noncontrast axial images of the abdomen and pelvis. Coronal and sagittal reformatted images made available for review Comparison made with prior exam dated 04/29/2025 Findings: Limited noncontrast CT evaluation of solid abdominal organs demonstrates no gross abnormality. No hydroureteronephrosis. Urinary bladder is distended and somewhat thick-walled. No renal, ureteral, or bladder calculi identified on this exam. Evaluation in gastrointestinal tract is limited secondary to lack of IV and oral contrast. Within the limitations exam there is no free air or intestinal obstruction. There is moderate distention of the distal colon with a moderate amount of liquid stool seen distally. There is soft tissue thickening around the rectum and anus which is unchanged from prior exam. Postoperative changes right hip arthroplasty. No acute osseous pathology. Impression: Limited exam Moderate distention of the distal colon with air and is liquid stool seen distally. Soft tissue thickening about the rectum and anus which is unchanged from prior exam Circumferential wall thickening of the urinary bladder which is distended. Findings may represent cystitis in appropriate clinical setting. Mild bibasilar atelectasis. Coronary artery calcifications. Elevation of the right hemidiaphragm. Electronically signed by Bird Barrera 07-07-2025 8:36 PM
[2025-07-07 21:10] LABS: Magnesium 1.8 mg/dl (1.7-2.4)
--- NOTE | 2025-07-07 21:16 | History & Physical Report ---
Date of Service July 07, 2025 Assessment & Plan (1) RY (acute kidney injury): (2) Recurrent UTI: (3) History of embolic stroke: (4) History of pulmonary embolus (PE): Plan Patient is an 89-year-old female with a past medical history of embolic CVA 04/21, PE 04/21 on Eliquis, dementia, depression, hypothyroidism, GERD, recurrent UTIs. Patient presented from [facility] with her daughter after being referred to come in due to 2 days of worsening kidney function failing to improve with IVF. Patient was found to have creatinine increased from 1.05 to 2.57 and a UTI on UA. She is being admitted for IVF and IV antibiotics. #RY/UTI - Cr increased from 1.05 to 2.57, BUN 45, electrolytes stable. UA concerning for infection wiht 1+ LE and 2 + bacteria. AP CT showed cystitis. Non septic presentation - no leukocytosis, VSS. - renally dose Eliquis - avoid nephrotoxic agents - NSS @ 250 ml/hr x1L ordered by ED - follow with LR @ 125 ml/hr x2 L - Rocephin 1g IV Q24h ordered; no previous positive cultures on file - follow urine culture - trend CBC, BMP, Mag #multiple embolic strokes/recent PE 04/21/2025 originally at [facility] and transferred to [facility] until 04/30/25. - decreasing Eliquis as above #dementia/depressionstable, at baseline. 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 Patient presented from [facility] with her daughter after being referred to come in due to 2 days of worsening kidney function failing to improve with IVF. Patient was found to have creatinine increased from 1.05-2.57 and a UTI on UA. She is being admitted for IVF and IV antibiotics. Patient seen at bedside with her daughter present. Patient is alert and oriented however does appear mildly confused and not responsive to questioning as she is unhappy that she needs to stay in the hospital and is very hungry. Obtained food for the patient. Discussed that she needed to stay due to her kidney function and that she needs IV fluids, patient is agreeable to stay 1 night but would like to return to [facility] as soon as possible. Discussed that she may need a longer hospitalization based off her recovery. The following history was obtained by the patient's daughter. The patient has not had any symptoms; denies dysuria, increase in urinary frequency, chest pain, shortness of breath, abdominal pain. The patient did have a stomach bug several days ago which resulted in 1 episode of vomiting and 1 episode of diarrhea however since resolved. The patient does have mild urinary incontinence at baseline due to ambulatory dysfunction however does often make it to the bathroom. She stated that the patient had an episode of sepsis from UTI in August which is when her dementia began. She has had frequent UTIs since however since being at [facility] they have been stable for the past few months. Patient is due for evening medications, will order. She wishes to maintain her DNR/DNI status. She stated the patient is at her baseline mentation. Allergies Allergy/AdvReac Type Severity Reaction Status Date / Time ertapenem Allergy Severe SEE COMMENT Verified 07/07/25 19:44 Penicillins Allergy Unknown HAPPENED A Verified 07/07/25 19:44 LONG TIME AGO morphine AdvReac Intermediate Vomiting Verified 07/07/25 19:44 Home Medications Medication Instructions Recorded Confirmed Type acetaminophen 325 mg tablet 650 mg PO Q4H PRN PAIN/FEVER =>100F 07/07/25 07/07/25 History (Tylenol) apixaban 5 mg tablet (Eliquis) 5 mg PO BID 07/07/25 07/07/25 History bupropion HCl 150 mg 24 hr tablet, 150 mg PO QAM 07/07/25 07/07/25 History extended release (Wellbutrin XL) cranberry extract 250 mg capsule 250 mg PO DAILY 07/07/25 07/07/25 History estradiol 0.01% (0.1 mg/gram) 0.5 g vaginal HS 07/07/25 07/07/25 History vaginal cream (Estrace) levothyroxine 25 mcg tablet 25 mcg PO DAILYBB 07/07/25 07/07/25 History olanzapine 5 mg tablet 5 mg PO HS 07/07/25 07/07/25 History ondansetron HCl 4 mg tablet 4 mg PO Q6H PRN NAUSEA/VOMITING 07/07/25 07/07/25 History pantoprazole 40 mg tablet,delayed 40 mg PO DAILYBB 07/07/25 07/07/25 History release (Protonix) polyethylene glycol 3350 17 17 g PO DAILY 07/07/25 07/07/25 History gram/dose oral powder (Miralax) potassium chloride 20 mEq 20 meq PO DAILY 07/07/25 07/07/25 History tablet,extended release Past Med/Surg History Problem List (Updated 07/07/25 @ 22:06 by PAULINA Wells) History of pulmonary embolus (PE) History of embolic stroke RY (acute kidney injury) (Acute) Recurrent UTI GERD (gastroesophageal reflux disease) Dementia Hematuria Medical History (Updated 07/07/25 @ 22:06 by PAULINA Wells) History of recent stroke Social History Smoking Status: Never smoker Second Hand Exposure: No; Do You Dip or Chew Tobacco: No; Hx Alcohol Use: No Hx Substance Use: No Preferred Language: Ugandan Communication Ability: Effective Communication Ability Comment: pt has dementia Architecture Instructor Required: No Beliefs That Will Affect Care: None Current Living Situation: Personal Care Facility Current Living Situation Comment: [facility] Feels Safe at Home: Yes Safety Concerns: Feels Safe At This Time Assistive Devices: Walker Review of Systems Review of Systems: see HPI Physical Exam Physical Exam: The patient is awake, alert and oriented 3 however mildly confused, well developed and well nourished, normocephalic and atraumatic, in no acute distress. Non-toxic appearing. HEENT- EOMI, mucous membranes dry. Hearing grossly intact. Heart-normal S1 and S2. No murmurs, rubs or gallops. Lungs-clear bilaterally, no respiratory distress, no accessory muscle use. Abdomen-normal bowel sounds and soft. No ascites noted. Non-tender. Extremities- no clubbing, cyanosis, or edema. Rheumatologic-normal range of motion. Psychiatric: Affect: + irritable affect Results & Data Results & Data Vital Signs (Past 12 Hours) Vital Signs Temp Pulse Pulse Resp BP BP Pulse Ox 07/07/25 20:32 79 16 95 07/07/25 18:50 72 20 130/81 95 07/07/25 18:17 76 20 104/75 95 07/07/25 17:55 80 20 115/81 95 07/07/25 17:08 36.5 C 84 18 108/69 96 O2 Del Method 07/07/25 20:32 Room Air 07/07/25 18:50 Room Air 07/07/25 18:17 Room Air 07/07/25 17:55 Room Air 07/07/25 17:08 Laboratory Results Reviewed CBC, CMP, UA Ordered magnesium Diagnostic Findings reviewed AP CT Medications Administered EDNSS at 250 mL/hour x 1L ECG Additional Comments: ordered Code Status & VTE Plan Code Status dnr/dni VTE Prophylaxis Plan VTE Prophylaxis will be ordered: Yes Supervising Physician Co-Signing Physician Notes 89yo female with history of prior CVA, prior PE on Eliquis presenting with worsening renal function Patient frail in appearance, dry mucus membranes +S1/S2, regular Lungs CTA, no rales Labs and images reviewed - Cr=2.57 from last value of 1.05 on 05/15/25. Remainder of metabolic profile and electrolytes are acceptable Assessment/Plan Will continue with gentle hydration - repeat chemistry in AM Avoid nephrotoxins - renal dose medications where needed Treatment of UTI with Ceftriaxone - no prior resistant organisms on culture PG Care Time/CCT Total # of Minutes Spent Total Time Spent with Patient: Total time spent is greater than 50% in coordination of care (as documented) at patient's floor/unit and/or counseling patient: Coding Level of Care Code 91596 INT INP/OBS CARE 3/75MIN Diagnoses RY (acute kidney injury) N17.9 Recurrent UTI N39.0 History of embolic stroke Z86.73 History of pulmonary embolus (PE) Z86.711
[2025-07-07] MEDS: cefTRIAXone SODIUM 1,000 MG/50 ML BAG IV STA (21:24)
[2025-07-07] MEDS ORDERED: DOCUSATE SODIUM 100 MG CAP PO PRN (22:16)
[2025-07-07] MEDS ORDERED: ONDANSETRON INJ 2 MG/ML 2 ML VIAL IV PRN (22:16)
[2025-07-07] MEDS ORDERED: POLYETHYLENE (MIRALAX) 17 GM PACK PO PRN (22:16)
[2025-07-07] MEDS: APIXABAN 2.5 MG TAB PO SCH (23:00)
[2025-07-08] MEDS: LACTATED RINGER'S 1,000 ML IV SCH (00:09)
[2025-07-08] MEDS: LEVOTHYROXINE SODIUM 25 MCG TABLET PO SCH (05:51)
[2025-07-08 06:04] LABS: Hematocrit (blood only) 36.9 % (37.0-47.0); Hemoglobin 12.0 g/dL (12.0-16.0); Mean Corpuscular Hemoglobin 29.1 pg (25.0-34.0); Mean Corpuscular Volume 89.3 fL (80.0-100.0); Platelet Count 202 K/uL (130-400); RDW Standard Deviation 46.5 fL (36.4-46.3); Red Blood Count 4.13 M/uL (4.20-5.40); White Blood Count 9.36 K/ul (4.8-10.8)
[2025-07-08 06:26] LABS: Albumin Level 3.2 gm/dl (3.4-5.0); Anion Gap 8.0 (3-11); Bilirubin,Total 0.3 mg/dl (0.2-1.0); Calcium 8.7 mg/dl (8.6-10.3); Carbon Dioxide 21.0 mmol/L (21-32); Chloride 114.0 mmol/L (98-107); Magnesium 1.7 mg/dl (1.7-2.4); Potassium 3.9 mmol/L (3.5-5.1); Sodium 143.0 mmol/L (136-145)
[2025-07-08 06:32] LABS: Alanine Aminotransferase 6.0 U/L (7-52); Albumin Globulin Ratio 1.3 (0.9-2); Alkaline Phosphatase 79.0 U/L (34-104); Blood Urea Nitrogen 43.0 mg/dl (6-23); Creatinine Clr Calc Pharmacy 14.5 ml/min; Globulin 2.4 gm/dl (2.5-4.0); Glucose 89.0 mg/dl (70-99(Fasting)); Total Protein 5.6 gm/dl (6.0-8.3)
[2025-07-08] MEDS: POTASSIUM CHLORIDE CRTAB 20 MEQ TABCR PO SCH (08:45)
--- NOTE | 2025-07-08 12:31 | Hospitalist Progress Note ---
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 Patient presented from [facility] with her daughter after being referred to come in due to 2 days of worsening kidney function failing to improve with IVF. Patient was found to have creatinine increased from 1.05 to 2.57 and a UTI on UA. She is being admitted for IVF and IV antibiotics. #RY/UTI - Cr increased from 1.05 to 2.57, BUN 45, electrolytes stable. UA concerning for infection wiht 1+ LE and 2 + bacteria. AP CT showed cystitis. Non septic presentation - no leukocytosis, VSS. - avoid nephrotoxic agents - NSS @ 250 ml/hr x1L ordered by ED - follow with LR @ 125 ml/hr x2 L - Rocephin 1g IV Q24h ordered; no previous positive cultures on file - Urine Cx without growth (<1000 colonies) -- await final cx but can likely stop abx - trend CBC, BMP, Mag -- renal fxn trended down to 2.28, but still significantly above baseline, continue fluids and trend labs in AM #multiple embolic strokes/recent PE 04/21/2025 originally at [facility] and transferred to [facility] until 04/30/25. -continue Eliquis 5mg po bid-no renal dosing due to being indicated for VTE #dementia/depressionstable, at baseline. Continue olanzapine and bupropion #GERDcontinue pantoprazole #Hypothyroidismcontinue levothyroxine VTE ppx: continue home Eliquis Dispo: med surg, obs, possibly back to [facility] tomorrow if renal fxn improved/closer to baseline Admission and Anticipated Discharge Date Admission Date: July 07, 2025 Supervising Physician Co-Signing Physician Notes PA Supervision Note: I did not personally see or examine the patient today, but I verified all lea points of MELISSA Rendon's assessment and plan with the following exceptions/additions: None Subjective Lelia is a pleasant 89 yo F who was admitted yesterday for RY on CKD and UTI. She is currently resting in bed, reports no complaints. She is anxious to return to [facility], but is agreeable to stay additional day. Her creatinine is still significantly above baseline. She denies complaints including cp or dyspnea. No abd pain, n/v/d, f/c, headace. Review of Systems 2 Review of Systems: All systems reviewed and are unremarkable except as noted in HPI and below. Denies fever, chills, fatigue, headache, nasal congestion, sore throat, cough, chest pain, shortness of breath, palpitations, orthopnea, PND, abdominal pain, n/v/d, constipation, dysuria, hematuria, frequency, back pain, joint pain or swelling, easy bruising or bleeding, skin lesions or rashes. Physical Exam 2 Physical Exam: GENERAL: 89 yo frail thin WF. A&O, no distress. LUNGS: Clear to auscultation bilaterally w/o W/R/R. CARDIOVASCULAR: Regular rate and rhythm. No M/G/R ABDOMEN: Soft, non-tender and non-distended. Bs normoactive x 4 quad. EXTREMITIES: No edema. Non-tender. Peripheral pulses +2/4. SKIN: Warm, dry, intact. No rashes or lesions. Results & Data Results & Data Vital Signs (Past 12 Hours) Vital Signs Temp Pulse Resp BP Pulse Ox O2 Del Method 07/08/25 07:05 36.5 C 67 16 173/92 H 96 Room Air Laboratory Results 07/08/25 05:00 07/08/25 05:00 PG Care Time/CCT Total # of Minutes Spent Total Time Spent with Patient: Total time spent is greater than 50% in coordination of care (as documented) at patient's floor/unit and/or counseling patient: 36 minutes Coding Level of Care Code 38752 SUB INP/OBS CARE 2/35MIN Diagnoses RY (acute kidney injury) N17.9 Recurrent UTI N39.0 History of embolic stroke Z86.73 History of pulmonary embolus (PE) Z86.711
[2025-07-08] MEDS: SODIUM CHLORIDE 0.9% 1,000 ML IV SCH (17:08)
[2025-07-08] MEDS: APIXABAN 5 MG TABLET PO SCH (19:37)
[2025-07-08] MEDS: MELATONIN 3 MG TAB PO PRN (21:04)
[2025-07-08] MEDS: cefTRIAXone SODIUM 1,000 MG/50 ML BAG IV SCH (21:05)
--- NOTE | 2025-07-08 22:27 | Electrocardiogram Report ---
Test Reason : Blood Pressure : */* mmHG Vent. Rate : 63 BPM Atrial Rate : 63 BPM P-R Int : 166 ms QRS Dur : 90 ms QT Int : 388 ms P-R-T Axes : 4 18 17 degrees QTcB Int : 397 ms Normal sinus rhythm Normal ECG When compared with ECG of 15-May-2025 15:48, No significant change was found Confirmed by Jose Whelan ([id number]) on 07/08/2025 10:26:53 PM Referred By: [facility] Confirmed By: Jose Whelan
[2025-07-09 07:41] LABS: Hematocrit (blood only) 38.1 % (37.0-47.0); Hemoglobin 12.9 g/dL (12.0-16.0); Mean Corpuscular Hemoglobin 29.9 pg (25.0-34.0); Mean Corpuscular Volume 88.4 fL (80.0-100.0); Platelet Count 200 K/uL (130-400); RDW Standard Deviation 45.3 fL (36.4-46.3); Red Blood Count 4.31 M/uL (4.20-5.40); White Blood Count 9.43 K/ul (4.8-10.8)
[2025-07-09 08:13] LABS: Creatinine Clr Calc Pharmacy 15.2 ml/min
--- NOTE | 2025-07-09 11:01 | Hospitalist Progress Note ---
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 Patient presented from [facility] with her daughter after being referred to come in due to 2 days of worsening kidney function failing to improve with IVF. Patient was found to have creatinine increased from 1.05 to 2.57 and a UTI on UA. She is being admitted for IVF and IV antibiotics. #RY/Abnormal UA - Cr increased from 1.05 to 2.57, BUN 45, electrolytes stable. UA concerning for infection wiht 1+ LE and 2 + bacteria. AP CT showed cystitis. Non septic presentation - no leukocytosis, VSS. - Placed in observation to med/surg - avoid nephrotoxic agents - NSS @ 250 ml/hr x1L ordered by ED - follow with LR @ 125 ml/hr x2 L and given an additional liter of NSS @ 80 ml/hr from 07/08-07/09 - Rocephin 1g IV Q24h ordered empirically for possible UTI-urine Cx with <1000 colonies of growth, d/c antibiotics - BMP has been ordered daily to trend renal function, slow/marginal improvement noted - Repeat BMP stat 07/09 including random urine creatinine and urine sodium - Appreciate nephrology consult - Prior urology visits noted for hematuria and possible bladder CA, declined cystoscopy at the time - Bladder scan qshift to r/o retention #multiple embolic strokes/recent PE 04/21/2025 originally at [facility] and transferred to [facility] until 04/30/25. - Continue Eliquis 5mg BID #dementia/depressionstable, at baseline. Continue olanzapine and bupropion #GERDcontinue pantoprazole #Hypothyroidismcontinue levothyroxine #HTN--Not presently on any medications, start amlodipine 5mg daily, follow BP Patient changed to full admission on 07/08. Repeat labs as outlined above and trend renal fxn with repeat BMP in AM. Appreciate nephrology input. Admission and Anticipated Discharge Date Admission Date: July 07, 2025 Supervising Physician Co-Signing Physician Notes PA Supervision Note: I did not personally see or examine the patient today, but I verified all lea points of MELISSA Rendon's assessment and plan with the following exceptions/additions: None Subjective Lelia is a pleasant 89 yo F who was admitted for RY and possible UTI. She is currently sitting in bedside chair. Her creatinine is still above baseline with marginal improvement over the past 48 hrs. She denies complaints including cp or dyspnea. No abd pain, n/v/d, f/c, back pain dysuria, hematuria, or headace. Review of Systems 2 Review of Systems: All systems reviewed and are unremarkable except as noted in HPI and below. Denies fever, chills, fatigue, headache, nasal congestion, sore throat, cough, chest pain, shortness of breath, palpitations, orthopnea, PND, abdominal pain, n/v/d, constipation, dysuria, hematuria, frequency, back pain, joint pain or swelling, easy bruising or bleeding, skin lesions or rashes. Physical Exam 2 Physical Exam: GENERAL: 89 yo frail thin WF. Awake, alert, no distress. LUNGS: Clear to auscultation bilaterally w/o W/R/R. CARDIOVASCULAR: Regular rate and rhythm. ABDOMEN: Soft, non-tender and non-distended. Bs normoactive x 4 quad. EXTREMITIES: No edema. Non-tender. Peripheral pulses +2/4. SKIN: Warm, dry, intact. No rashes or lesions. Results & Data Results & Data Vital Signs (Past 12 Hours) Vital Signs Temp Pulse Resp BP Pulse Ox O2 Del Method 07/09/25 07:09 36.7 C 68 16 180/94 H 94 Room Air 07/08/25 23:12 36.6 C 66 16 169/90 H 95 Room Air Laboratory Results 07/09/25 07:19 07/09/25 07:19 PG Care Time/CCT Total # of Minutes Spent Total Time Spent with Patient: Total time spent is greater than 50% in coordination of care (as documented) at patient's floor/unit and/or counseling patient: 38 minutes Coding Level of Care Code 35883 SUB INP/OBS CARE 2/35MIN Diagnoses RY (acute kidney injury) N17.9 Recurrent UTI N39.0 History of embolic stroke Z86.73 History of pulmonary embolus (PE) Z86.711
[2025-07-09 11:20] LABS: Anion Gap 8.0 (3-11); Blood Urea Nitrogen 33.0 mg/dl (6-23); Calcium 8.7 mg/dl (8.6-10.3); Carbon Dioxide 23.0 mmol/L (21-32); Chloride 113.0 mmol/L (98-107); Creatinine Clr Calc Pharmacy 15.2 ml/min; Glucose 85.0 mg/dl (70-99(Fasting)); Potassium 3.1 mmol/L (3.5-5.1); Sodium 144.0 mmol/L (136-145)
--- NOTE | 2025-07-09 12:31 | Nephrology Consultation ---
Date of Consultation July 09, 2025 Assessment & Plan (1) RY (acute kidney injury): * RY likely on the basis of dehydration. Patient has received adequate volume resuscitation and Cr is now trending toward baseline. Abdominal CT was negative for obstruction. Urine microscopy was negative for blood or casts. Urine culture is NGTD. Volume status and electrolyte balance are acceptable at this time * Continue supportive care, encourage oral hydration, avoid known nephrotoxic agents * If renal recovery stalls, consider Foster catheter insertion to monitor I&O's * Recommend supplement potassium to maintain serum K > 3.5 * Monitor BMP, UO (2) Hypertension: * BP is currently well controlled * Continue amlodipine therapy (3) History of embolic stroke: (4) History of pulmonary embolus (PE): (5) Dementia: History of Present Illness Reason for Consultation: RY Attending Physician: Kylie Bullard MD History of Present Illness Mrs. Guerrero is an 89 year old white female who is seen at the request of the [facility] hospitalist service for evaluation of RY. Patient is unable to provide details of her medical history. No family was present at the time of my evaluation. Information for the HPI is obtained from review of the EMR. HPI is summarized as follows: Mrs. Guerrero has no prior h/o kidney disease. Her baseline Cr has been 0.7-1.05. She currently resides at [facility]. 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 Mrs. Guerrero reportedly suffered an episode of emesis and diarrhea. Laboratory studies at the residential revealed Cr 2.57 and patient was transported to [facility] EMD for evaluation. In the EMD she received 1L 0.9NS. Following admission she was then given 2L LR. Urinalysis revealed trace protein, no blood. Urine culture was NGTD. 07/07/[address] without contrast was negative for obstruction. Patient was not on NSAIDS, SILVERIO/ARB prior to admission. Following hydration Cr has improved from 2.57-->2.17. UO has not been quantitated due to incontinence. Allergies Allergy/AdvReac Type Severity Reaction Status Date / Time ertapenem Allergy Severe SEE COMMENT Verified 07/07/25 19:44 Penicillins Allergy Unknown HAPPENED A Verified 07/07/25 19:44 LONG TIME AGO morphine AdvReac Intermediate Vomiting Verified 07/07/25 19:44 Home Medications Medication Instructions Recorded Confirmed Type acetaminophen 325 mg tablet 650 mg PO Q4H PRN PAIN/FEVER =>100F 07/07/25 07/07/25 History (Tylenol) apixaban 5 mg tablet (Eliquis) 5 mg PO BID 07/07/25 07/07/25 History bupropion HCl 150 mg 24 hr tablet, 150 mg PO QAM 07/07/25 07/07/25 History extended release (Wellbutrin XL) cranberry extract 250 mg capsule 250 mg PO DAILY 07/07/25 07/07/25 History estradiol 0.01% (0.1 mg/gram) 0.5 g vaginal HS 07/07/25 07/07/25 History vaginal cream (Estrace) levothyroxine 25 mcg tablet 25 mcg PO DAILYBB 07/07/25 07/07/25 History olanzapine 5 mg tablet 5 mg PO HS 07/07/25 07/07/25 History ondansetron HCl 4 mg tablet 4 mg PO Q6H PRN NAUSEA/VOMITING 07/07/25 07/07/25 History pantoprazole 40 mg tablet,delayed 40 mg PO DAILYBB 07/07/25 07/07/25 History release (Protonix) polyethylene glycol 3350 17 17 g PO DAILY 07/07/25 07/07/25 History gram/dose oral powder (Miralax) potassium chloride 20 mEq 20 meq PO DAILY 07/07/25 07/07/25 History tablet,extended release Patient History Medical History History of recent stroke Social History Smoking Status: Never smoker Second Hand Exposure: No; Do You Dip or Chew Tobacco: No; Hx Alcohol Use: No Hx Substance Use: No Preferred Language: Welsh Communication Ability: Effective Communication Ability Comment: pt has dementia Accessibility Lift Technician Required: No Beliefs That Will Affect Care: None Current Living Situation: Personal Care Facility Current Living Situation Comment: [facility] Feels Safe at Home: Yes Safety Concerns: Feels Safe At This Time Assistive Devices: Walker Review of Systems Constitutional: no fever Eyes: no problem reported Ear, Nose, Mouth, Throat: no problem reported Respiratory: no cough and no dyspnea Cardiovascular: no chest pain Gastrointestinal: + nausea and + diarrhea/loose stools Genitourinary: no dysuria and no hematuria Integumentary: no rash Physical Exam Constitutional: not in distress Eyes: PERRL, conjunctivae normal, anicteric sclerae ENMT: external ear and nose normal, oropharynx normal Neck: trachea midline, no thyromegaly Respiratory: normal respiratory effort, lungs clear to auscultation Cardiovascular: RRR, no murmur, no edema Gastrointestinal (Abdomen): normal bowel sounds, soft, nontender, no hepatosplenomegaly Musculoskeletal: Extremities: no cyanosis Skin: no rashes, warm and dry Neurologic: no focal motor deficits Results & Data Vital Signs (Past 12 Hours) Vital Signs Temp Pulse Resp BP Pulse Ox O2 Del Method 07/09/25 11:08 135/93 07/09/25 07:09 36.7 C 68 16 180/94 H 94 Room Air Laboratory Results Laboratory Results WBC 9.43 K/ul (4.8-10.8) 07/09/25 07:19 RBC 4.31 M/uL (4.20-5.40) 07/09/25 07:19 Hgb 12.9 g/dL (12.0-16.0) 07/09/25 07:19 Hct 38.1 % (37.0-47.0) 07/09/25 07:19 MCV 88.4 fL (80.0-100.0) 07/09/25 07:19 MCH 29.9 pg (25.0-34.0) 07/09/25 07:19 MCHC 33.9 g/dL (32.0-36.0) 07/09/25 07:19 RDW Std Deviation 45.3 fL (36.4-46.3) 07/09/25 07:19 RDW Coeff of Alvaro 14.0 % (11.5-14.5) 07/09/25 07:19 Plt Count 200 K/uL (130-400) 07/09/25 07:19 MPV 11.3 fL (9.4-12.4) 07/09/25 07:19 Immature Gran % (Auto) 0.3 % 07/07/25 18:14 Neut % (Auto) 66.7 % 07/07/25 18:14 Lymph % (Auto) 18.6 % 07/07/25 18:14 [place] % (Auto) 6.5 % 07/07/25 18:14 Eos % (Auto) 7.8 % 07/07/25 18:14 Baso % (Auto) 0.1 % 07/07/25 18:14 Neut # (Auto) 6.09 K/uL (1.40-6.50) 07/07/25 18:14 Lymph # (Auto) 1.70 K/uL (1.20-3.40) 07/07/25 18:14 [place] # (Auto) 0.59 K/uL (0.11-0.59) 07/07/25 18:14 Eos # (Auto) 0.71 K/uL (0.00-0.50) H 07/07/25 18:14 Baso # (Auto) 0.01 K/uL (0.00-0.20) 07/07/25 18:14 Immature Gran # (Auto) 0.03 K/uL (0.01-0.20) 07/07/25 18:14 Sodium 144 mmol/L (136-145) 07/09/25 07:25 Potassium 3.1 mmol/L (3.5-5.1) L D 07/09/25 07:25 Chloride 113 mmol/L (98-107) H 07/09/25 07:25 Carbon Dioxide 23 mmol/L (21-32) 07/09/25 07:25 Anion Gap 8 (3-11) 07/09/25 07:25 BUN 33 mg/dl (6-23) H 07/09/25 07:25 Creatinine 2.17 mg/dl (0.6-1.2) H 07/09/25 07:25 Est Cr Clr Drug Dosing 15.2 ml/min 07/09/25 07:25 eGFR 21.39 07/09/25 07:25 BUN/Creatinine Ratio 15.2 (10-20) 07/09/25 07:25 Glucose 85 mg/dl (70-99(Fasting)) 07/09/25 07:25 Calcium 8.7 mg/dl (8.6-10.3) 07/09/25 07:25 Magnesium 1.7 mg/dl (1.7-2.4) 07/08/25 05:00 Total Bilirubin 0.3 mg/dl (0.2-1.0) 07/08/25 05:00 AST 11 U/L (13-39) L 07/08/25 05:00 ALT 6 U/L (7-52) L 07/08/25 05:00 Alkaline Phosphatase 79 U/L (34-104) 07/08/25 05:00 Total Protein 5.6 gm/dl (6.0-8.3) L 07/08/25 05:00 Albumin 3.2 gm/dl (3.4-5.0) L 07/08/25 05:00 Globulin 2.4 gm/dl (2.5-4.0) L 07/08/25 05:00 Albumin/Globulin Ratio 1.3 (0.9-2) 07/08/25 05:00 Urine Color Yellow 07/07/25 18:47 Urine Appearance Clear (Clear) 07/07/25 18:47 Urine pH 5.0 (4.5-7.5) 07/07/25 18:47 Ur Specific [place] 1.011 (1.000-1.030) 07/07/25 18:47 Urine Protein Trace (Negative) H 07/07/25 18:47 Urine Glucose (UA) Negative (Negative) 07/07/25 18:47 Urine Ketones Negative (Negative) 07/07/25 18:47 Urine Blood Negative (Negative) 07/07/25 18:47 Urine Nitrite Negative (Negative) 07/07/25 18:47 Urine Bilirubin Negative (Negative) 07/07/25 18:47 Urine Urobilinogen Negative (Negative) 07/07/25 18:47 Ur Leukocyte Esterase 1+ (Negative) H 07/07/25 18:47 Urine WBC (Auto) 0-5 /hpf (0-5) 07/07/25 18:47 Urine RBC (Auto) 0-2 /hpf (0-2) 07/07/25 18:47 U Hyaline Cast (Auto) 0-2 /lpf (0-2) 07/07/25 18:47 U Epithel Cells (Auto) 0-2 /hpf (0-2) 07/07/25 18:47 Urine Bacteria (Auto) 2+ (None Seen) H 07/07/25 18:47 Urine Comment 07/07/25 18:47 Impressions Abdomen/Pelvis CT 07/07/25 17:56 CT of the abdomen pelvis without contrast Technique: Noncontrast axial images of the abdomen and pelvis. Coronal and sagittal reformatted images made available for review Comparison made with prior exam dated 04/29/2025 Findings: Limited noncontrast CT evaluation of solid abdominal organs demonstrates no gross abnormality. No hydroureteronephrosis. Urinary bladder is distended and somewhat thick-walled. No renal, ureteral, or bladder calculi identified on this exam. Evaluation in gastrointestinal tract is limited secondary to lack of IV and oral contrast. Within the limitations exam there is no free air or intestinal obstruction. There is moderate distention of the distal colon with a moderate amount of liquid stool seen distally. There is soft tissue thickening around the rectum and anus which is unchanged from prior exam. Postoperative changes right hip arthroplasty. No acute osseous pathology. Impression: Limited exam Moderate distention of the distal colon with air and is liquid stool seen distally. Soft tissue thickening about the rectum and anus which is unchanged from prior exam Circumferential wall thickening of the urinary bladder which is distended. Findings may represent cystitis in appropriate clinical setting. Mild bibasilar atelectasis. Coronary artery calcifications. Elevation of the right hemidiaphragm. Electronically signed by Bird Barrera 07-07-2025 8:36 PM PG Care Time/CCT Total # of Minutes Spent Total Time Spent with Patient: 80 min provided to review EMD notes, progress notes, laboratory data, urine sediment, 07/07/[address] report and films, interview and examine patient, order am labs, update medical record Coding Level of Care Code 03679 IN/OBS CONSULT LVL 5,80M Diagnoses RY (acute kidney injury) N17.9 Hypertension I10 History of embolic stroke Z86.73 History of pulmonary embolus (PE) Z86.711 Dementia F03.90
[2025-07-09] MEDS: POTASSIUM CHLORIDE CRTAB 20 MEQ TABCR PO STA (13:58)
[2025-07-09 14:02] LABS: Appearance Urine Cloudy (Clear); Bacteria Urine Automated None Seen (None Seen); Glucose Urine UA Negative (Negative); RBC Urine Automated 0-2 /hpf (0-2); WBC Urine Automated >50 /hpf (0-5)
--- NOTE | 2025-07-10 09:05 | Nephrology Progress Note ---
Date of Service July 10, 2025 Assessment & Plan (1) RY (acute kidney injury): Plan: * RY likely on the basis of dehydration. Patient has received adequate volume resuscitation and Cr is now trending toward baseline. Abdominal CT was negative for obstruction. Urine microscopy was negative for blood or casts. Urine culture is NGTD. Volume status and electrolyte balance are acceptable at this time * 4:44 am labs were ordered but just now drawn. Awaiting results * Continue supportive care, encourage oral hydration, avoid known nephrotoxic agents * If renal recovery stalls, consider Foster catheter insertion to monitor I&O's * Recommend supplement potassium to maintain serum K > 3.5 * Monitor daily BMP, UO (2) Hypertension: Plan: * BP is currently well controlled * Continue amlodipine therapy (3) History of embolic stroke: (4) History of pulmonary embolus (PE): (5) Dementia: Admission and Anticipated Discharge Date Admission Date: July 07, 2025 Subjective Mrs. Guerrero was evaluated in her hospital room this morning. She was oriented to self only. She voiced no medical concerns. She was breathing comfortably on RA O2 Review of Systems Constitutional: no fever Eyes: no problem reported Ear, Nose, Mouth, Throat: no problem reported Respiratory: no cough and no dyspnea Cardiovascular: no chest pain Gastrointestinal: no nausea and no diarrhea/loose stools Genitourinary: no dysuria and no hematuria Integumentary: no rash Physical Exam Constitutional: not in distress Eyes: PERRL, conjunctivae normal, anicteric sclerae ENMT: external ear and nose normal, oropharynx normal Neck: trachea midline, no thyromegaly Respiratory: normal respiratory effort, lungs clear to auscultation Cardiovascular: RRR, no murmur, no edema Gastrointestinal (Abdomen): normal bowel sounds, soft, nontender, no hepatosplenomegaly Musculoskeletal: Extremities: no cyanosis Skin: no rashes, warm and dry Neurologic: no focal motor deficits Results & Data Vital Signs (Past 12 Hours) Vital Signs Temp Pulse Resp BP BP Pulse Ox O2 Del Method 07/10/25 08:13 36.8 C 78 16 152/96 H 96 Room Air 07/09/25 21:46 36.5 C 79 18 152/89 H 97 Room Air PG Care Time/CCT Total # of Minutes Spent Total Time Spent with Patient: 50 min visit provided to review progress notes, laboratory data, interview and examine patient, contact phlebotomy to have am labs drawn, update medical record Coding Level of Care Code 52079 SUB INP/OBS CARE MIN Diagnoses RY (acute kidney injury) N17.9 Hypertension I10 History of embolic stroke Z86.73 History of pulmonary embolus (PE) Z86.711 Dementia F03.90
[2025-07-10 10:52] LABS: Anion Gap 7.0 (3-11); Blood Urea Nitrogen 35.0 mg/dl (6-23); Calcium 8.5 mg/dl (8.6-10.3); Carbon Dioxide 25.0 mmol/L (21-32); Chloride 110.0 mmol/L (98-107); Creatinine Clr Calc Pharmacy 17.1 ml/min; Glucose 132.0 mg/dl (70-99(Fasting)); Potassium 3.1 mmol/L (3.5-5.1); Sodium 142.0 mmol/L (136-145)
[2025-07-10] MEDS: POTASSIUM CHLORIDE CRTAB 20 MEQ TABCR PO STA (11:16)
--- NOTE | 2025-07-10 11:43 | Hospitalist Progress Note ---
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 Patient presented from [facility] with her daughter after being referred to come in due to 2 days of worsening kidney function failing to improve with IVF on 07/07/2025. #RY| Abnormal UA Cr increased from 1.05 to 2.57, BUN 45, electrolytes stable on admission. Now downtrending to 1.93. Prior urology visits noted for hematuria and possible bladder CA, declined cystoscopy at the time s/p Rocephin, discontinued after negative UC resulted. s/p IVF Nephrology consulted --> RY likely secondary to dehydration. She has received adequate volume resuscitation. Urine creat 43.4, Urine Na 88. Bladder scan qshift to r/o retention Monitor BMP daily. #Hypokalemia K low at 3.1. On 20meq KCl daily. s/p additional 40meq Recheck BMP and magnesium in AM #multiple embolic strokes/recent PE 04/21/2025 originally at [facility] and transferred to [facility] until 04/30/25. Continue Eliquis 5mg BID (PE dosing) #dementia/depression stable, at baseline. Continue olanzapine and bupropion #GERDcontinue pantoprazole #HypothyroidismTSH 6.2 in 03/2025 - Continue levothyroxine - Follow as an outpatient #HTN--Not presently on any medications, start amlodipine 5mg daily, follow BP Patient changed to full admission on 07/08. Updated daughter at bedside 07/10. Code: DNR/DNI DVT prophylaxis: Eliquis Anticipate discharge back to [facility] on 07/11, daughter will provide transport Admission and Anticipated Discharge Date Admission Date: July 07, 2025 Supervising Physician Co-Signing Physician Notes PA Supervision Note: I did not personally see or examine the patient today, but I verified all lea points of MELISSA Hollis's assessment and plan with the following exceptions/additions: None Subjective Lelia was seen & examined this morning. She was alert and oriented to person only. Daughter at bedside. Updated her on lab work. Daughter reports she will transport at time of discharge. Physical Exam Physical Exam: General: NAD, VS: BP 152/96; P78; R16; T36.8C Resp: normal respiratory effort Extremities: Moves all extremities, no edema Neuro: Alert to person Skin: intact, no lesions noted Results & Data Results & Data Vital Signs (Past 12 Hours) Vital Signs Temp Pulse Resp BP Pulse Ox O2 Del Method 07/10/25 08:13 36.8 C 78 16 152/96 H 96 Room Air PG Care Time/CCT Total # of Minutes Spent Total Time Spent with Patient: Total time spent is greater than 50% in coordination of care (as documented) at patient's floor/unit and/or counseling patient: Coding Level of Care Code 14754 SUB INP/OBS CARE 2/35MIN Diagnoses RY (acute kidney injury) N17.9 Recurrent UTI N39.0 History of embolic stroke Z86.73 History of pulmonary embolus (PE) Z86.711"
[2025-07-10 23:03] VITALS: RESP 18
[2025-07-11 05:15] LABS: Anion Gap 7.0 (3-11); Blood Urea Nitrogen 33.0 mg/dl (6-23); Calcium 8.9 mg/dl (8.6-10.3); Carbon Dioxide 25.0 mmol/L (21-32); Chloride 113.0 mmol/L (98-107); Creatinine Clr Calc Pharmacy 17.5 ml/min; Glucose 90.0 mg/dl (70-99(Fasting)); Magnesium 1.5 mg/dl (1.7-2.4); Potassium 3.3 mmol/L (3.5-5.1); Sodium 145.0 mmol/L (136-145)
--- NOTE | 2025-07-11 08:34 | Discharge Summary ---
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 Patient presented from [facility] with her daughter after being referred to come in due to 2 days of worsening kidney function failing to improve with IVF on 07/07/2025. #RY| Abnormal UA Cr increased from 1.05 to 2.57, BUN 45, electrolytes stable on admission. Now downtrending to 1.88. Prior urology visits noted for hematuria and possible bladder CA, declined cystoscopy at the time s/p Rocephin, discontinued after negative UC resulted. s/p IVF. Continue PO intake outpatient. Nephrology consulted --> RY likely secondary to dehydration. She has received adequate volume resuscitation. Urine creat 43.4, Urine Na 88. #Hypokalemia K still ow at 3.3 but has improved. On 20meq KCl daily. s/p additional 40meq given prior to dc. Mag mildly low at 1.5 s/p repletion prior to dc. #multiple embolic strokes/recent PE 04/21/2025 originally at [facility] and transferred to [facility] until 04/30/25. Continue Eliquis 5mg BID (PE dosing) #dementia/depression stable, at baseline. Continue olanzapine and bupropion #GERDcontinue pantoprazole #HypothyroidismTSH 6.2 in 03/2025, Continue levothyroxine. #HTN--Not presently on any medications, start amlodipine 5mg daily, continue on discharge. Patient discharged back to [facility] on 07/11. Admission HPI Per Admitting Provider Patient is an 89-year-old female with a past medical history of embolic CVA 1 02, PE 102 on Eliquis, dementia, depression, hypothyroidism, GERD, recurrent UTIs. Patient presented from [facility] with her daughter after being referred to come in due to 2 days of worsening kidney function failing to improve with IVF. Patient was found to have creatinine increased from 1.05-2.57 and a UTI on UA. She is being admitted for IVF and IV antibiotics. Patient seen at bedside with her daughter present. Patient is alert and oriented however does appear mildly confused and not responsive to questioning as she is unhappy that she needs to stay in the hospital and is very hungry. Obtained food for the patient. Discussed that she needed to stay due to her kidney function and that she needs IV fluids, patient is agreeable to stay 1 night but would like to return to [facility] as soon as possible. Discussed that she may need a longer hospitalization based off her recovery. The following history was obtained by the patient's daughter. The patient has not had any symptoms; denies dysuria, increase in urinary frequency, chest pain, shortness of breath, abdominal pain. The patient did have a stomach bug several days ago which resulted in 1 episode of vomiting and 1 episode of diarrhea however since resolved. The patient does have mild urinary incontinence at baseline due to ambulatory dysfunction however does often make it to the bathroom. She stated that the patient had an episode of sepsis from UTI in August which is when her dementia began. She has had frequent UTIs since however since being at [facility] they have been stable for the past few months. Patient is due for evening medications, will order. She wishes to maintain her DNR/DNI status. She stated the patient is at her baseline mentation. Discharge Exam General: NAD, VS: BP 146/83; P78; R18; T36.5C Resp: normal respiratory effort Extremities: Moves all extremities, no edema Neuro: Alert, oriented to self only. Skin: intact, no lesions noted Discharge Plan Discharge Items Patient Disposition: Transfer Shelter Fac Reason For Visit: RY, UTI Discharge Diagnosis: RY Condition on Discharge: Good Activity: Resume your previous activity Non-emergency contact: Primary Care Provider Call non-emergency contact if: you have any medication questions and your symptoms worsen Follow-up/Referrals: Keenan Lopez [place] [Primary Care Provider] - Diet: Regular Addtl Attending Provider Instructions: Ms. Guerrero, You were recently hospitalized secondary to worsening renal function which is likely secondary to dehydration. This was corrected with IV fluids. Please make sure you are drinking an adequate amount of water on discharge. Medications: Your medication list has been reviewed and reconciled upon discharge to ensure accuracy and continuity of care. An updated list of all your medications is included with your hospital discharge paperwork. Please review this list closely, and make note of any changes. While hospitalized, your blood pressure was found to be elevated on a consistent basis. You have been started on 5mg amlodipine once daily. Your blood pressure will continue to be monitored at [facility]. Take your medications as instructed; do not skip a dose of your medicines. Make sure all of your doctors know every medicine you are taking (including texk-tbt-trkeume medicines, vitamins, and supplements). Call your primary care provider before taking any new medicines (including over- the-counter medicines, vitamins, and supplements), because some of these may interact with your current medications, or may make your symptoms worse. Tell your primary care provider if you cannot afford your medications. Activity: You can do normal everyday activities as your body allows. Take rest breaks if you feel tired. Do not overexert. Stop activity if you have pain, shortness of breath or feel dizzy. Follow-up appointments: Make an appointment with your primary care physician within one week of discharge. A copy of this summary will be sent to them. Every time you see your primary care physician, or any other doctor, bring your medication list, and a list of questions. CONTACT YOUR PRIMARY CARE PROVIDER if you experience any of the following: Shortness of breath or difficulty breathing Fevers or chills Feeling tired with normal activity or experiencing dizziness or fainting Difficulty following your treatment plan, or difficulty taking medications CALL 911 OR GO TO THE EMERGENCY DEPARTMENT if you experience any of the following: Severe abdominal pain or nausea/vomiting Severe chest pain, or chest pain that radiates (moves) to your jaw or arm Sudden, severe shortness of breath or difficulty breathing Thank you for allowing us to participate in your care. Pending Studies at Discharge: No Stand-Alone Forms: My [facility] Skilled Items Lines: None Urinary Catheter: No Medications and DC Order Prescriptions: New amlodipine 5 mg Tablet 5 mg PO QAM Qty: 30 0RF Continued acetaminophen [Tylenol] 325 mg Tablet 650 mg PO Q4H PRN (Reason: PAIN/FEVER =>100F) ondansetron HCl 4 mg Tablet 4 mg PO Q6H PRN (Reason: NAUSEA/VOMITING) Rx Instructions: STARTED 07/04/25, ENDS 07/09/25 olanzapine 5 mg Tablet 5 mg PO HS levothyroxine 25 mcg Tablet 25 mcg PO DAILYBB cranberry extract 250 mg Capsule 250 mg PO DAILY Rx Instructions: administer with a meal pantoprazole [Protonix] 40 mg Tablet,Delayed Release (Dr/Ec) 40 mg PO DAILYBB bupropion HCl [Wellbutrin XL] 150 mg Tablet Extended Release 24 Hr 150 mg PO QAM Eliquis 5 mg Tablet 5 mg PO BID potassium chloride 20 mEq Tablet Extended Release 20 meq PO DAILY polyethylene glycol 3350 [Miralax] 17 gram/dose powder 17 g PO DAILY estradiol [Estrace] 0.01 % (0.1 mg/gram) cream 0.5 g vaginal HS Rx Instructions: use nightly Discharge Orders: Discharge Order (Routine); Ordered 07/11/25 Ordered By: Samira Hollis Admission Data Admit Date/Time: 07/08/25 18:45 Attending Provider: Randall Mckenzie Admit Provider: Mallory Interiano Primary Care Provider: Keenan Lopez [facility] Other Providers: Mallory Interiano; Jamel Malone; Keenan Lopez [facility] Other Interventions: Discharge Summary Assessment (RN) Last Done: 07/11/25 09:47 Hospital Stay Data Consultations 07/07/25 20:53 ED Decision to Admit Stat 07/09/25 10:46 Consult Nephrology Routine Diagnostic Imagining Performed 07/07/25 17:56 CT abd pelvis wo con Stat Pending Results Patient Have Any Pending Studies at Discharge: No Discharge Instructions Given to Patient (Per Discharging Provider) Ms. Guerrero, Cam were recently hospitalized secondary to worsening renal function which is likely secondary to dehydration. This was corrected with IV fluids. Please make sure you are drinking an adequate amount of water on discharge. Medications: Your medication list has been reviewed and reconciled upon discharge to ensure accuracy and continuity of care. An updated list of all your medications is included with your hospital discharge paperwork. Please review this list closely, and make note of any changes. While hospitalized, your blood pressure was found to be elevated on a consistent basis. You have been started on 5mg amlodipine once daily. Your blood pressure will continue to be monitored at [facility]. Take your medications as instructed; do not skip a dose of your medicines. Make sure all of your doctors know every medicine you are taking (including hgox-vzo-dvzhitd medicines, vitamins, and supplements). Call your primary care provider before taking any new medicines (including over- the-counter medicines, vitamins, and supplements), because some of these may interact with your current medications, or may make your symptoms worse. Tell your primary care provider if you cannot afford your medications. Activity: You can do normal everyday activities as your body allows. Take rest breaks if you feel tired. Do not overexert. Stop activity if you have pain, shortness of breath or feel dizzy. Follow-up appointments: Make an appointment with your primary care physician within one week of discharge. A copy of this summary will be sent to them. Every time you see your primary care physician, or any other doctor, bring your medication list, and a list of questions. CONTACT YOUR PRIMARY CARE PROVIDER if you experience any of the following: Shortness of breath or difficulty breathing Fevers or chills Feeling tired with normal activity or experiencing dizziness or fainting Difficulty following your treatment plan, or difficulty taking medications CALL 911 OR GO TO THE EMERGENCY DEPARTMENT if you experience any of the following: Severe abdominal pain or nausea/vomiting Severe chest pain, or chest pain that radiates (moves) to your jaw or arm Sudden, severe shortness of breath or difficulty breathing Thank you for allowing us to participate in your care. Total Time Total Time Spent Total Time Spent (In Minutes): 45 Total Time Includes: Examination of the Patient, Discharge Planning and Medication Reconciliation Coding Level of Care Code 42914 INP/OBS DISCH >30 MIN Diagnoses RY (acute kidney injury) N17.9 Recurrent UTI N39.0 History of embolic stroke Z86.73 History of pulmonary embolus (PE) Z86.711"
[2025-07-11] MEDS: POTASSIUM CHLORIDE CRTAB 20 MEQ TABCR PO STA (08:53)
[2025-07-11] MEDS: MAGNESIUM OXIDE 400 MG TAB PO ONE (08:54)
[2025-07-11] MEDS: ACETAMINOPHEN 325 MG TAB PO PRN (08:54)
[2025-07-11 08:59] VITALS: PULSE 78; TEMP 97.7; O2SAT 96
[2025-07-11 09:48] VITALS: BP 146/83
== END 2025-07-11 10:20 | DRG 683 ==
LOC: ED 16:59 → 3W 16:59 → SUATTDRO 21:16 → 3W 21:47